=== PATIENT | female | born 1945 | race Caucasian/White ===

== ENCOUNTER 2020-12-05 23:55 | Inpatient (IN) | payer MEDICARE ==
[~2020-12-05] VITALS: Ht 157.5 cm; Wt 56.8 kg
[2020-12-06 00:25] LABS: BASO % 0 % (0-3); EOS % 0 % (0-3); HEMOGLOBIN 12.5 g/dL (12.0-15.5); LYMPH # 1.6 x10^3/uL (1.0-4.8); LYMPH % 15 % (24-48); MEAN CORPUSCULAR HEMOGLOBIN 33 pg (25-35); MEAN CORPUSCULAR HGB CONC 34 g/dL (31-37); MEAN CORPUSCULAR VOLUME 99 fL (79-100); MONO # 0.9 x10^3/uL (0.0-1.1); MONO % 8 % (0-9); NEUT # 8.1 x10^3/uL (1.8-7.7); NEUT % 77 % (31-73); PLATELET COUNT 342 x10^3/uL (140-400); RED BLOOD COUNT 3.74 x10^6/uL (3.50-5.40); RED CELL DISTRIBUTION WIDTH 12.6 % (11.5-14.5); WHITE BLOOD COUNT 10.6 x10^3/uL (4.0-11.0)
[2020-12-06] MEDS ORDERED: methylPREDNISolone SOD SUCC PF 125 MG/2 ML VIAL. IV ONE (00:30)
[2020-12-06] MEDS ORDERED: ONDANSETRON PF 4 MG/2 ML VIAL. IVP ONE (00:30)
[2020-12-06] MEDS ORDERED: IPRATRPIUM/ALBUTEROL 0.5/2.5MG 3 ML NEBU. NEB ONE (00:30)
[2020-12-06 00:39] LABS: CALCIUM 9.1 mg/dL (8.5-10.1); CREATININE 0.5 mg/dL (0.6-1.0); GFR 120.9
[2020-12-06 00:39] LABS: BASE EXCESS COOX -1 mmol/L (-3-3); HCO3 COOX 27 mmol/L (21-28); METHEMOGLOBIN 0.3 % (0.0-1.9); OXYHEMOGLOBIN 96.7 %; PCO2 COOX 59 mmHg (35-46); PO2 COOX 110 mmHg (65-108); SAT O2 COOX 97 % (92-99)
[2020-12-06 00:44] LABS: ALBUMIN/GLOBULIN RATIO 1.2 (1.0-1.7); TOTAL BILIRUBIN 0.2 mg/dL (0.2-1.0); TOTAL PROTEIN 7.4 g/dL (6.4-8.2)
--- NOTE | 2020-12-06 00:49 | RAD ---
XR CHEST 1V 12/06/2020 12:28 AM INDICATION: Shortness of air COMPARISON: None available TECHNIQUE: Portable frontal view of the chest is provided. FINDINGS: The cardiomediastinal silhouette is within normal limits. Pulmonary emphysematous changes are present . There are no significant pleural effusions. There is no pulmonary vascular congestion. No pneumothora x. No suspicious osseous abnormality. IMPRESSION: COPD changes without cardiopulmonary process. Electronically signed by: Harper Lira MD (12/06/2020 12:47 AM) [facility]
[2020-12-06 01:17] LABS: INFLUENZA A PATIENT NEGATIVE (NEGATIVE); INFLUENZA B PATIENT NEGATIVE (NEGATIVE)
--- NOTE | 2020-12-06 01:22 | PHYS DOC ---
Past Medical History Past Medical History: A-Fib, COPD Past Surgical History: Other Additional Past Surgical Histo: unknown Smoking Status: Current Every Day Smoker Alcohol Use: None General Adult EDM: Chief Complaint: SHORTNESS OF BREATH HPI: HPI: Patient is a 74 year old female who was brought here by EMS from home due to trouble breathing. Per EMS report patient has been sick for a week due to trouble breathing and cough, nonproductive. For the last 3-day she had more trouble breathing, she is currently on prednisone. Tonight her breathing became more labored so she called EMS to take her here for evaluation. Patient denies any fever. Patient was fully vaccinated for COVID-19. Patient says she does not want to be intubated. Patient has history of atrial fibrillation, COPD. Review of Systems: Review of Systems: Constitutional: Denies fever or chills. [] Eyes: Denies change in visual acuity. [] HENT: Denies nasal congestion or sore throat. [] Respiratory: Positive for cough and trouble breathing. Cardiovascular: Denies chest pain or edema. [] GI: Denies abdominal pain, nausea, vomiting, bloody stools or diarrhea. [] : Denies dysuria. [] Musculoskeletal: Denies back pain or joint pain. [] Integument: Denies rash. [] Neurologic: Denies headache, focal weakness or sensory changes. [] Endocrine: Denies polyuria or polydipsia. [] Lymphatic: Denies swollen glands. [] Psychiatric: Denies depression or anxiety. [] Heart Score: C/O Chest Pain: N/A Risk Factors: Risk Factors: DM, Current or recent (<one month) smoker, HTN, HLP, family history of CAD, obesity. Risk Scores: Score 0 - 3: 2.5% MACE over next 6 weeks - Discharge Home Score 4 - 6: 20.3% MACE over next 6 weeks - Admit for Clinical Observation Score 7 - 10: 72.7% MACE over next 6 weeks - Early Invasive Strategies Current Medications: Current Medications Medications (Trade) Dose Ordered Sig/Demetra Start Time Stop Time Status Last Admin Dose Admin Albuterol/ Ipratropium (Duoneb) 3 ml 1X ONCE 12/06/20 00:30 12/06/20 00:31 DC 12/06/20 00:27 3 ML Lorazepam (Ativan Inj) 1 mg 1X ONCE 12/06/20 01:00 12/06/20 01:01 DC 12/06/20 00:56 1 MG Methylprednisolone Sodium Succinate (SOLU-Medrol 125MG VIAL) 125 mg 1X ONCE 12/06/20 00:30 12/06/20 00:31 DC 12/06/20 00:56 125 MG Ondansetron HCl (Zofran) 4 mg 1X ONCE 12/06/20 00:30 12/06/20 00:46 DC 12/06/20 00:56 4 MG Allergies: Allergies: Allergies Coded Allergies Type Severity Reaction Last Updated Verified No Known Drug Allergies 12/06/20 No Physical Exam: PE: Constitutional: Well developed, well nourished, in moderate acute distress, non- toxic appearance. [] HENT: Normocephalic, atraumatic, bilateral external ears normal, oropharynx moist, no oral exudates, nose normal. [] Eyes: PERRLA, EOMI, conjunctiva normal, no discharge. [] Neck: Normal range of motion, no tenderness, supple, no stridor. [] Cardiovascular: TACHYCARDIA, IRREGULAR rhythm, no murmur [] Lungs & Thorax: Bilateral breath sounds WITH WHEEZING to auscultation, tac hypnic. Abdomen: Bowel sounds normal, soft, no tenderness, no masses, no pulsatile masses. [] Skin: Warm, dry, no erythema, no rash. [] Back: No tenderness, no CVA tenderness. [] Extremities: No tenderness, no cyanosis, no clubbing, ROM intact, no edema. [] Neurologic: Alert and oriented X 3, normal motor function, normal sensory function, no focal deficits noted. [] Psychologic: Affect normal, judgement normal, mood normal. [] Current Patient Data: Labs: Laboratory Tests Test 12/06/20 00:05 12/06/20 00:16 12/06/20 00:34 White Blood Count 10.6 x10^3/uL (4.0-11.0) Red Blood Count 3.74 x10^6/uL (3.50-5.40) Hemoglobin 12.5 g/dL (12.0-15.5) Hematocrit 37.0 % (36.0-47.0) Mean Corpuscular Volume 99 fL (79-100) Mean Corpuscular Hemoglobin 33 pg (25-35) Mean Corpuscular Hemoglobin Concent 34 g/dL (31-37) Red Cell Distribution Width 12.6 % (11.5-14.5) Platelet Count 342 x10^3/uL (140-400) Neutrophils (%) (Auto) 77 % (31-73) H Lymphocytes (%) (Auto) 15 % (24-48) L Monocytes (%) (Auto) 8 % (0-9) Eosinophils (%) (Auto) 0 % (0-3) Basophils (%) (Auto) 0 % (0-3) Neutrophils # (Auto) 8.1 x10^3/uL (1.8-7.7) H Lymphocytes # (Auto) 1.6 x10^3/uL (1.0-4.8) Monocytes # (Auto) 0.9 x10^3/uL (0.0-1.1) Eosinophils # (Auto) 0.0 x10^3/uL (0.0-0.7) Basophils # (Auto) 0.0 x10^3/uL (0.0-0.2) Sodium Level 139 mmol/L (136-145) Potassium Level 4.0 mmol/L (3.5-5.1) Chloride Level 100 mmol/L (98-107) Carbon Dioxide Level 32 mmol/L (21-32) Anion Gap 7 (6-14) Blood Urea Nitrogen 14 mg/dL (7-20) Creatinine 0.5 mg/dL (0.6-1.0) L Estimated GFR (Cockcroft-Gault) 120.9 BUN/Creatinine Ratio 28 (6-20) H Glucose Level 134 mg/dL (70-99) H Lactic Acid Level 0.6 mmol/L (0.4-2.0) Calcium Level 9.1 mg/dL (8.5-10.1) Magnesium Level 2.0 mg/dL (1.8-2.4) Total Bilirubin 0.2 mg/dL (0.2-1.0) Aspartate Amino Transferase (AST) 28 U/L (15-37) Alanine Aminotransferase (ALT) 30 U/L (14-59) Alkaline Phosphatase 77 U/L (46-116) Troponin I High Sensitivity 14 ng/L (4-50) YN-Cjb-B-Type Natriuretic Peptide 252 pg/mL (0-124) H Total Protein 7.4 g/dL (6.4-8.2) Albumin 4.0 g/dL (3.4-5.0) Albumin/Globulin Ratio 1.2 (1.0-1.7) O2 Saturation 97 % (92-99) Arterial Blood pH 7.27 (7.35-7.45) L Arterial Blood pCO2 at Patient Temp 59 mmHg (35-46) H Arterial Blood pO2 at Patient Temp 110 mmHg (65-108) H Arterial Blood HCO3 27 mmol/L (21-28) Arterial Blood Base Excess -1 mmol/L (-3-3) Oxyhemoglobin 96.7 % Methemoglobin 0.3 % (0.0-1.9) Carbon Monoxide, Quantitative 0.3 % (0.0-1.9) FiO2 7l n.c. Influenza Type A Antigen Negative (NEGATIVE) Influenza Type B Antigen Negative (NEGATIVE) SARS-CoV-2 Antigen (Rapid) Negative (NEGATIVE) Laboratory Tests 12/06/20 00:05 Laboratory Tests 12/06/20 00:05 Vital Signs: Vital Signs Date Time Temp Pulse Resp B/P (MAP) Pulse Ox O2 Delivery O2 Flow Rate FiO2 12/06/20 01:06 94 BiPAP/CPAP 12/06/20 01:02 7.0 12/06/20 00:26 126 30 126/90 (102) 12/06/20 00:00 97.9 97.9 EKG: EKG: EKG was done at 0010, heart rate of 121 BPM, AFIB WITH RVR, NO STEMI. Radiology/Procedures: Radiology/Procedures: [][facility] [address] [place] [address] IMAGING REPORT Signed PATIENT: CASANDRA SMITH ACCOUNT: [id number] : 1945 LOCATION: ER AGE: 74 SEX: F EXAM STATUS: PRE ER ORD. PHYSICIAN: SAYRA GUTIERREZ APRN REASON: SOA PROCEDURE: PORTABLE CHEST 1V XR CHEST 1V 12/06/2020 12:28 AM INDICATION: Shortness of air COMPARISON: None available TECHNIQUE: Portable frontal view of the chest is provided. FINDINGS: The cardiomediastinal silhouette is within normal limits. Pulmonary emphysematous changes are present. There are no significant pleural effusions. There is no pulmonary vascular congestion. No pneumothorax. No suspicious osseous abnormality. IMPRESSION: COPD changes without cardiopulmonary process. Electronically signed by: Kendra Frias MD (12/06/2020 12:47 AM) [facility] DICTATED and SIGNED BY: KENDRA FRIAS MD DATE: 12/06/20 [id number] Course & Med Decision Making: Course & Med Decision Making Pertinent Labs and Imaging studies reviewed. (See chart for details) Patient is a 73-year-old female who present to ER due to trouble breathing. Patient has COPD exacerbation, she also in atrial fibrillation with RVR. Patient expressed desire to be DO NOT RESUSCITATE. Patient was tested negative for COVID-19. Patient given DuoNeb treatment, Solu-Medrol in the ER. Patient be admitted to hospital for further evaluation treatment. Sofia Disclaimer: Sofia Disclaimer: This electronic medical record was generated, in whole or in part, using a voice recognition dictation system. Departure Departure Impression: Primary Impression: COPD with exacerbation Additional Impressions: Atrial fibrillation with RVR Person under investigation for COVID-19 Disposition: ADMITTED INPATIENT Admitting Physician: BRAD (DR. LAVERNE LEI) Condition: STABLE ALEX MONTES DO Dec 06, 2020 01:22
[2020-12-06] MEDS ORDERED: IV NORMAL SALINE 1000ML BAG 1,000 ML IV SCH (01:30)
[2020-12-06] MEDS ORDERED: ONDANSETRON PF 4 MG/2 ML VIAL. IVP PRN ×2 (01:30→08:45)
[2020-12-06 01:54] LABS: BASE EXCESS ABG 3 mmol/L (-3-3); HCO3 ABG 31 mmol/L (21-28); PCO2 ABG 66 mmHg (35-46); PO2 ABG 73 mmHg (65-108); SAT O2 ABG 93 % (92-99)
[2020-12-06 01:55] LABS: FIO2 ABG 30
[2020-12-06 02:12] LABS: BILIRUBIN,URINE NEGATIVE (NEG); CLARITY,URINE CLEAR; COLOR,URINE YELLOW; NITRITE,URINE NEGATIVE (NEG); PROTEIN,URINE NEGATIVE (NEG-TRACE); UROBILINOGEN,URINE 0.2 mg/dL (0.2 mg/dL)
[2020-12-06 02:34] LABS: BACTERIA,URINE 0 /HPF (0-FEW); RBC,URINE 0 /HPF (0-2); WBC,URINE OCC /HPF (0-4)
[2020-12-06 02:35] LABS: HYALINE CASTS, URINE MODERATE /HPF
--- NOTE | 2020-12-06 08:39 | PDOC1 ---
History and Physical Date of Service: DOS: DATE: 12/06/20 TIME: 08:32 Chief Complaint: Chief Complain: Shortness of breath History of Present Illness: HPI: History obtained from discussion with the ED physician and chart review: 74-year-old female with past medical history of atrial fibrillation, COPD comes in with shortness of breath for the past week aggressively worsened. Patient has also been complaining of cough that has minimal production that is clear sputum. No yellow or greenish sputum. Patient is currently on prednisone. Last night her breathing became so labored that she had to call EMS and come to the ED for further evaluation. Denies any chest pain, fevers, nausea vomiting, abdominal pain, diarrhea, hematuria or palpitations or syncope. Patient is vaccinated for COVID-19. Past Medical/Surgical History: PMH/PSH: Past Medical History: A-Fib, COPD Allergies: Allergies: Coded Allergies: No Known Drug Allergies (Unverified , 12/06/20) Family History: Family History: Reviewed with no relevant findings Social History: Social History: Smoking Status: Current Every Day Smoker Alcohol Use: None Current Medications: Current Medications Current Medications Methylprednisolone Sodium Succinate (SOLU-Medrol 125MG VIAL) 125 mg 1X ONCE IV Last administered on 12/06/20at 00:56; Start 12/06/20 at 00:30; Stop 12/06/20 at 00:31; Status DC Albuterol/ Ipratropium (Duoneb) 3 ml 1X ONCE NEB Last administered on 12/06/20at 00:27; Start 12/06/20 at 00:30; Stop 12/06/20 at 00:31; Status DC Ondansetron HCl (Zofran) 4 mg 1X ONCE IVP Last administered on 12/06/20at 00:56; Start 12/06/20 at 00:30; Stop 12/06/20 at 00:46; Status DC Lorazepam (Ativan Inj) 1 mg 1X ONCE IVP Last administered on 12/06/20at 00:56; Start 12/06/20 at 01:00; Stop 12/06/20 at 01:01; Status DC Ondansetron HCl (Zofran) 4 mg PRN Q8HRS PRN IVP NAUSEA/VOMITING; Start 12/06/20 at 01:30; Stop 12/07/20 at 01:29 Sodium Chloride 1,000 ml @ 75 mls/hr [id number] IV Last administered on 12/06/20at 02:43; Start 12/06/20 at 01:30; Stop 12/07/20 at 01:29 Diltiazem HCl (Cardizem Iv Push) 20 mg 1X ONCE IVP Last administered on 12/06/20at 02:41; Start 12/06/20 at 01:30; Stop 12/06/20 at 01:33; Status DC Diltiazem HCl 125 mg/Sodium Chloride 125 ml @ 5 mls/hr CONT PRN IV PER PROTOCOL; Start 12/06/20 at 02:30 ROS: Review of Systems Review of System REVIEW OF SYSTEMS: GENERAL: Denies weakness SKIN: No bruising, hair changes or rashes. EYES: No blurred, double or loss of vision. NOSE AND THROAT: No history of nosebleeds, hoarseness or sore throat. HEART: No history of palpitations, chest pain or shortness of breath on exertion. LUNGS: Denies cough, hemoptysis, wheezing or shortness of breath. GASTROINTESTINAL: Denies changes in appetite, nausea, vomiting, diarrhea or constipation. GENITOURINARY: No history of frequency, urgency, hesitancy or nocturia. NEUROLOGIC: Denies history of numbness, tingling, or tremor. PSYCHIATRIC: No history of panic, anxiety or depression. ENDOCRINE: No history of heat or cold intolerance, polyuria or polydipsia. EXTREMITIES: Denies joint pain, pain on walking or stiffness. Physical Exam: Vital Signs: Vital Signs Date Time Temp Pulse Resp B/P (MAP) Pulse Ox O2 Delivery O2 Flow Rate FiO2 12/06/20 06:08 106 26 124/61 (82) 96 BiPAP/CPAP 12/06/20 01:02 7.0 12/06/20 00:00 97.9 97.9 Physcial Exam: GEN: No apparent distress. Alert and oriented HEENT: Normal cephalic, atraumatic, external auditory canals are patent EYES: Extraocular muscles are intact, pupil are equally round and reactive to light and accommodation MUSCULOSKELETAL: Well developed , well nourished, good range of motion ENDOCRINE: No thyromegaly was palpated LYMPHATICS: No cervical chain or axillary nodes were noted HEMATOPOIETIC: No bruising NECK: Supple, no JVD, no thyromegaly was noted LUNGS: Clear to auscultation in all lung [place] without rhonchi or wheezing HEART: RRR, S!, S2 present. Peripheral pulses intact, no obvious murmurs noted ABDOMEN: Soft, nontender. Positive bowel sounds, no organomegaly, normal bowel sounds EXTREMITIES: Without clubbing, cyanosis, or edema. Pedal pulses intact. Negative Homans sign NEUROLOGIC: Normal speech and tone. A&O x 3, moves all extremities, no obvious focal deficits PSYCHIATRIC: Normal affect, normal mood. Stable SKIN: No ulcerations or rashes, good skin turgor, no jaundice VASCULAR: Good capillary refill, neurovascular bundle appears to be intact Labs: Labs: Laboratory Tests Test 12/06/20 00:05 12/06/20 00:16 12/06/20 00:34 12/06/20 01:51 White Blood Count 10.6 x10^3/uL (4.0-11.0) Red Blood Count 3.74 x10^6/uL (3.50-5.40) Hemoglobin 12.5 g/dL (12.0-15.5) Hematocrit 37.0 % (36.0-47.0) Mean Corpuscular Volume 99 fL (79-100) Mean Corpuscular Hemoglobin 33 pg (25-35) Mean Corpuscular Hemoglobin Concent 34 g/dL (31-37) Red Cell Distribution Width 12.6 % (11.5-14.5) Platelet Count 342 x10^3/uL (140-400) Neutrophils (%) (Auto) 77 % (31-73) Lymphocytes (%) (Auto) 15 % (24-48) Monocytes (%) (Auto) 8 % (0-9) Eosinophils (%) (Auto) 0 % (0-3) Basophils (%) (Auto) 0 % (0-3) Neutrophils # (Auto) 8.1 x10^3/uL (1.8-7.7) Lymphocytes # (Auto) 1.6 x10^3/uL (1.0-4.8) Monocytes # (Auto) 0.9 x10^3/uL (0.0-1.1) Eosinophils # (Auto) 0.0 x10^3/uL (0.0-0.7) Basophils # (Auto) 0.0 x10^3/uL (0.0-0.2) Sodium Level 139 mmol/L (136-145) Potassium Level 4.0 mmol/L (3.5-5.1) Chloride Level 100 mmol/L (98-107) Carbon Dioxide Level 32 mmol/L (21-32) Anion Gap 7 (6-14) Blood Urea Nitrogen 14 mg/dL (7-20) Creatinine 0.5 mg/dL (0.6-1.0) Estimated GFR (Cockcroft-Gault) 120.9 BUN/Creatinine Ratio 28 (6-20) Glucose Level 134 mg/dL (70-99) Lactic Acid Level 0.6 mmol/L (0.4-2.0) Calcium Level 9.1 mg/dL (8.5-10.1) Magnesium Level 2.0 mg/dL (1.8-2.4) Total Bilirubin 0.2 mg/dL (0.2-1.0) Aspartate Amino Transf (AST/SGOT) 28 U/L (15-37) Alanine Aminotransferase (ALT/SGPT) 30 U/L (14-59) Alkaline Phosphatase 77 U/L (46-116) Troponin I High Sensitivity 14 ng/L (4-50) FQ-Uxn-Y-Type Natriuretic Peptide 252 pg/mL (0-124) Total Protein 7.4 g/dL (6.4-8.2) Albumin 4.0 g/dL (3.4-5.0) Albumin/Globulin Ratio 1.2 (1.0-1.7) O2 Saturation 97 % (92-99) 93 % (92-99) Arterial Blood pH 7.27 (7.35-7.45) 7.29 (7.35-7.45) Arterial Blood pCO2 at Patient Temp 59 mmHg (35-46) 66 mmHg (35-46) Arterial Blood pO2 at Patient Temp 110 mmHg (65-108) 73 mmHg (65-108) Arterial Blood HCO3 27 mmol/L (21-28) 31 mmol/L (21-28) Arterial Blood Base Excess -1 mmol/L (-3-3) 3 mmol/L (-3-3) Oxyhemoglobin 96.7 % Methemoglobin 0.3 % (0.0-1.9) Carbon Monoxide, Quantitative 0.3 % (0.0-1.9) FiO2 7l n.c. 30 Influenza Type A Antigen Negative (NEGATIVE) Influenza Type B Antigen Negative (NEGATIVE) SARS-CoV-2 Antigen (Rapid) Negative (NEGATIVE) Test 12/06/20 02:00 Urine Collection Type Unknown Urine Color Yellow Urine Clarity Clear Urine pH 6.0 (<5.0-8.0) Urine Specific [place] 1.015 (1.000-1.030) Urine Protein Negative mg/dL (NEG-TRACE) Urine Glucose (UA) Negative mg/dL (NEG) Urine Ketones (Stick) Negative mg/dL (NEG) Urine Blood Negative (NEG) Urine Nitrite Negative (NEG) Urine Bilirubin Negative (NEG) Urine Urobilinogen Dipstick 0.2 mg/dL (0.2 mg/dL) Urine Leukocyte Esterase Negative (NEG) Urine RBC 0 /HPF (0-2) Urine WBC Occ /HPF (0-4) Urine Squamous Epithelial Cells Few /LPF Urine Bacteria 0 /HPF (0-FEW) Urine Hyaline Casts Moderate /HPF Urine Mucus Mod /LPF Laboratory Tests Test 12/06/20 00:05 12/06/20 00:16 12/06/20 00:34 12/06/20 01:51 White Blood Count 10.6 x10^3/uL (4.0-11.0) Red Blood Count 3.74 x10^6/uL (3.50-5.40) Hemoglobin 12.5 g/dL (12.0-15.5) Hematocrit 37.0 % (36.0-47.0) Mean Corpuscular Volume 99 fL (79-100) Mean Corpuscular Hemoglobin 33 pg (25-35) Mean Corpuscular Hemoglobin Concent 34 g/dL (31-37) Red Cell Distribution Width 12.6 % (11.5-14.5) Platelet Count 342 x10^3/uL (140-400) Neutrophils (%) (Auto) 77 % (31-73) Lymphocytes (%) (Auto) 15 % (24-48) Monocytes (%) (Auto) 8 % (0-9) Eosinophils (%) (Auto) 0 % (0-3) Basophils (%) (Auto) 0 % (0-3) Neutrophils # (Auto) 8.1 x10^3/uL (1.8-7.7) Lymphocytes # (Auto) 1.6 x10^3/uL (1.0-4.8) Monocytes # (Auto) 0.9 x10^3/uL (0.0-1.1) Eosinophils # (Auto) 0.0 x10^3/uL (0.0-0.7) Basophils # (Auto) 0.0 x10^3/uL (0.0-0.2) Sodium Level 139 mmol/L (136-145) Potassium Level 4.0 mmol/L (3.5-5.1) Chloride Level 100 mmol/L (98-107) Carbon Dioxide Level 32 mmol/L (21-32) Anion Gap 7 (6-14) Blood Urea Nitrogen 14 mg/dL (7-20) Creatinine 0.5 mg/dL (0.6-1.0) Estimated GFR (Cockcroft-Gault) 120.9 BUN/Creatinine Ratio 28 (6-20) Glucose Level 134 mg/dL (70-99) Lactic Acid Level 0.6 mmol/L (0.4-2.0) Calcium Level 9.1 mg/dL (8.5-10.1) Magnesium Level 2.0 mg/dL (1.8-2.4) Total Bilirubin 0.2 mg/dL (0.2-1.0) Aspartate Amino Transf (AST/SGOT) 28 U/L (15-37) Alanine Aminotransferase (ALT/SGPT) 30 U/L (14-59) Alkaline Phosphatase 77 U/L (46-116) Troponin I High Sensitivity 14 ng/L (4-50) NU-Khv-X-Type Natriuretic Peptide 252 pg/mL (0-124) Total Protein 7.4 g/dL (6.4-8.2) Albumin 4.0 g/dL (3.4-5.0) Albumin/Globulin Ratio 1.2 (1.0-1.7) O2 Saturation 97 % (92-99) 93 % (92-99) Arterial Blood pH 7.27 (7.35-7.45) 7.29 (7.35-7.45) Arterial Blood pCO2 at Patient Temp 59 mmHg (35-46) 66 mmHg (35-46) Arterial Blood pO2 at Patient Temp 110 mmHg (65-108) 73 mmHg (65-108) Arterial Blood HCO3 27 mmol/L (21-28) 31 mmol/L (21-28) Arterial Blood Base Excess -1 mmol/L (-3-3) 3 mmol/L (-3-3) Oxyhemoglobin 96.7 % Methemoglobin 0.3 % (0.0-1.9) Carbon Monoxide, Quantitative 0.3 % (0.0-1.9) FiO2 7l n.c. 30 Influenza Type A Antigen Negative (NEGATIVE) Influenza Type B Antigen Negative (NEGATIVE) SARS-CoV-2 Antigen (Rapid) Negative (NEGATIVE) Test 12/06/20 02:00 Urine Collection Type Unknown Urine Color Yellow Urine Clarity Clear Urine pH 6.0 (<5.0-8.0) Urine Specific [place] 1.015 (1.000-1.030) Urine Protein Negative mg/dL (NEG-TRACE) Urine Glucose (UA) Negative mg/dL (NEG) Urine Ketones (Stick) Negative mg/dL (NEG) Urine Blood Negative (NEG) Urine Nitrite Negative (NEG) Urine Bilirubin Negative (NEG) Urine Urobilinogen Dipstick 0.2 mg/dL (0.2 mg/dL) Urine Leukocyte Esterase Negative (NEG) Urine RBC 0 /HPF (0-2) Urine WBC Occ /HPF (0-4) Urine Squamous Epithelial Cells Few /LPF Urine Bacteria 0 /HPF (0-FEW) Urine Hyaline Casts Moderate /HPF Urine Mucus Mod /LPF Images: Images PROCEDURE: PORTABLE CHEST 1V XR CHEST 1V 12/06/2020 12:28 AM INDICATION: Shortness of air COMPARISON: None available TECHNIQUE: Portable frontal view of the chest is provided. FINDINGS: The cardiomediastinal silhouette is within normal limits. Pulmonary emphysematous changes are present. There are no significant pleural effusions. There is no pulmonary vascular congestion. No pneumothorax. No suspicious osseous abnormality. IMPRESSION: COPD changes without cardiopulmonary process. Assessment/Plan Assessment/Plan Acute hypoxic hypercapnic respiratory failure Acute COPD exacerbation Acute on chronic A. fib RVR History of COPD Tobacco misuse Admit to hospitalist service for further management O2 supplementation to maintain O2 saturation greater than 90% BiPAP as needed and nocturnal Continue IV diltiazem drip to maintain target heart rate of less than 100 bpm IV steroids Continue telemetry Lovenox for DVT prophylaxis Protonix during steroids use GI prophylaxis ADA diet CODE STATUS DNR Discussed with RN and SW Disposition inpatient management as above DPOA: In addition to my E/M visit, advance care planning done with A total time of 20 minutes was spent from 8:00 to 820 face to face in discussion regarding the patient's goals of care, CODE STATUS. Smoking cessation: Total time spent was 12 minutes in face to face counseling. Patient has agreed to consider nicotine patches/gum or to start on Varnicline when discharged A total of 45 minutes of critical care time was spent in reviewing chart, labs, and images. Discussed with RN and SW. Justifications for Admission Other Justification CLYDE CAMP MD Dec 06, 2020 08:39
[2020-12-06] MEDS ORDERED: PROCHLORPERAZINE 10 MG/2 ML VIAL. IV PRN (08:45)
[2020-12-06] MEDS ORDERED: MORPHINE SULFATE 2 MG/ML INJ. IVP PRN (08:45)
[2020-12-06] MEDS ORDERED: MORPHINE SULFATE 2 MG/ML INJ. IV PRN (08:45)
[2020-12-06] MEDS ORDERED: ACETAMINOPHEN 325 MG TABLET. PO PRN (08:45)
[2020-12-06] MEDS ORDERED: DEXTROSE 50% 25 GM / 50ML DISP.SYRIN. IV PRN (08:45)
[2020-12-06] MEDS ORDERED: SENNOSIDES 8.6 MG TABLET PO PRN (08:45)
[2020-12-06] MEDS ORDERED: DOCUSATE SODIUM 100 MG CAPSULE. PO PRN (08:45)
[2020-12-06] MEDS ORDERED: ENOXAPARIN 40 MG/0.4 ML SYRINGE. SQ SCH (09:00)
--- NOTE | 2020-12-06 09:14 | PDOC ---
PULMONARY PROGRESS NOTES DATE: 12/06/20 TIME: 09:14 Vitals Vital Signs Date Time Temp Pulse Resp B/P (MAP) Pulse Ox O2 Delivery O2 Flow Rate FiO2 12/06/20 08:33 96 BiPAP/CPAP 12/06/20 06:08 106 26 124/61 (82) 12/06/20 01:02 7.0 12/06/20 00:00 97.9 97.9 Labs Laboratory Tests Test 12/06/20 00:05 12/06/20 00:16 12/06/20 00:34 12/06/20 01:51 White Blood Count 10.6 x10^3/uL (4.0-11.0) Red Blood Count 3.74 x10^6/uL (3.50-5.40) Hemoglobin 12.5 g/dL (12.0-15.5) Hematocrit 37.0 % (36.0-47.0) Mean Corpuscular Volume 99 fL (79-100) Mean Corpuscular Hemoglobin 33 pg (25-35) Mean Corpuscular Hemoglobin Concent 34 g/dL (31-37) Red Cell Distribution Width 12.6 % (11.5-14.5) Platelet Count 342 x10^3/uL (140-400) Neutrophils (%) (Auto) 77 % (31-73) Lymphocytes (%) (Auto) 15 % (24-48) Monocytes (%) (Auto) 8 % (0-9) Eosinophils (%) (Auto) 0 % (0-3) Basophils (%) (Auto) 0 % (0-3) Neutrophils # (Auto) 8.1 x10^3/uL (1.8-7.7) Lymphocytes # (Auto) 1.6 x10^3/uL (1.0-4.8) Monocytes # (Auto) 0.9 x10^3/uL (0.0-1.1) Eosinophils # (Auto) 0.0 x10^3/uL (0.0-0.7) Basophils # (Auto) 0.0 x10^3/uL (0.0-0.2) Sodium Level 139 mmol/L (136-145) Potassium Level 4.0 mmol/L (3.5-5.1) Chloride Level 100 mmol/L (98-107) Carbon Dioxide Level 32 mmol/L (21-32) Anion Gap 7 (6-14) Blood Urea Nitrogen 14 mg/dL (7-20) Creatinine 0.5 mg/dL (0.6-1.0) Estimated GFR (Cockcroft-Gault) 120.9 BUN/Creatinine Ratio 28 (6-20) Glucose Level 134 mg/dL (70-99) Lactic Acid Level 0.6 mmol/L (0.4-2.0) Calcium Level 9.1 mg/dL (8.5-10.1) Magnesium Level 2.0 mg/dL (1.8-2.4) Total Bilirubin 0.2 mg/dL (0.2-1.0) Aspartate Amino Transf (AST/SGOT) 28 U/L (15-37) Alanine Aminotransferase (ALT/SGPT) 30 U/L (14-59) Alkaline Phosphatase 77 U/L (46-116) Troponin I High Sensitivity 14 ng/L (4-50) CC-Qdn-H-Type Natriuretic Peptide 252 pg/mL (0-124) Total Protein 7.4 g/dL (6.4-8.2) Albumin 4.0 g/dL (3.4-5.0) Albumin/Globulin Ratio 1.2 (1.0-1.7) O2 Saturation 97 % (92-99) 93 % (92-99) Arterial Blood pH 7.27 (7.35-7.45) 7.29 (7.35-7.45) Arterial Blood pCO2 at Patient Temp 59 mmHg (35-46) 66 mmHg (35-46) Arterial Blood pO2 at Patient Temp 110 mmHg (65-108) 73 mmHg (65-108) Arterial Blood HCO3 27 mmol/L (21-28) 31 mmol/L (21-28) Arterial Blood Base Excess -1 mmol/L (-3-3) 3 mmol/L (-3-3) Oxyhemoglobin 96.7 % Methemoglobin 0.3 % (0.0-1.9) Carbon Monoxide, Quantitative 0.3 % (0.0-1.9) FiO2 7l n.c. 30 Influenza Type A Antigen Negative (NEGATIVE) Influenza Type B Antigen Negative (NEGATIVE) SARS-CoV-2 Antigen (Rapid) Negative (NEGATIVE) Test 12/06/20 02:00 Urine Collection Type Unknown Urine Color Yellow Urine Clarity Clear Urine pH 6.0 (<5.0-8.0) Urine Specific [place] 1.015 (1.000-1.030) Urine Protein Negative mg/dL (NEG-TRACE) Urine Glucose (UA) Negative mg/dL (NEG) Urine Ketones (Stick) Negative mg/dL (NEG) Urine Blood Negative (NEG) Urine Nitrite Negative (NEG) Urine Bilirubin Negative (NEG) Urine Urobilinogen Dipstick 0.2 mg/dL (0.2 mg/dL) Urine Leukocyte Esterase Negative (NEG) Urine RBC 0 /HPF (0-2) Urine WBC Occ /HPF (0-4) Urine Squamous Epithelial Cells Few /LPF Urine Bacteria 0 /HPF (0-FEW) Urine Hyaline Casts Moderate /HPF Urine Mucus Mod /LPF Laboratory Tests Test 12/06/20 00:05 12/06/20 00:16 12/06/20 00:34 12/06/20 01:51 White Blood Count 10.6 x10^3/uL (4.0-11.0) Red Blood Count 3.74 x10^6/uL (3.50-5.40) Hemoglobin 12.5 g/dL (12.0-15.5) Hematocrit 37.0 % (36.0-47.0) Mean Corpuscular Volume 99 fL (79-100) Mean Corpuscular Hemoglobin 33 pg (25-35) Mean Corpuscular Hemoglobin Concent 34 g/dL (31-37) Red Cell Distribution Width 12.6 % (11.5-14.5) Platelet Count 342 x10^3/uL (140-400) Neutrophils (%) (Auto) 77 % (31-73) Lymphocytes (%) (Auto) 15 % (24-48) Monocytes (%) (Auto) 8 % (0-9) Eosinophils (%) (Auto) 0 % (0-3) Basophils (%) (Auto) 0 % (0-3) Neutrophils # (Auto) 8.1 x10^3/uL (1.8-7.7) Lymphocytes # (Auto) 1.6 x10^3/uL (1.0-4.8) Monocytes # (Auto) 0.9 x10^3/uL (0.0-1.1) Eosinophils # (Auto) 0.0 x10^3/uL (0.0-0.7) Basophils # (Auto) 0.0 x10^3/uL (0.0-0.2) Sodium Level 139 mmol/L (136-145) Potassium Level 4.0 mmol/L (3.5-5.1) Chloride Level 100 mmol/L (98-107) Carbon Dioxide Level 32 mmol/L (21-32) Anion Gap 7 (6-14) Blood Urea Nitrogen 14 mg/dL (7-20) Creatinine 0.5 mg/dL (0.6-1.0) Estimated GFR (Cockcroft-Gault) 120.9 BUN/Creatinine Ratio 28 (6-20) Glucose Level 134 mg/dL (70-99) Lactic Acid Level 0.6 mmol/L (0.4-2.0) Calcium Level 9.1 mg/dL (8.5-10.1) Magnesium Level 2.0 mg/dL (1.8-2.4) Total Bilirubin 0.2 mg/dL (0.2-1.0) Aspartate Amino Transf (AST/SGOT) 28 U/L (15-37) Alanine Aminotransferase (ALT/SGPT) 30 U/L (14-59) Alkaline Phosphatase 77 U/L (46-116) Troponin I High Sensitivity 14 ng/L (4-50) RG-Gel-V-Type Natriuretic Peptide 252 pg/mL (0-124) Total Protein 7.4 g/dL (6.4-8.2) Albumin 4.0 g/dL (3.4-5.0) Albumin/Globulin Ratio 1.2 (1.0-1.7) O2 Saturation 97 % (92-99) 93 % (92-99) Arterial Blood pH 7.27 (7.35-7.45) 7.29 (7.35-7.45) Arterial Blood pCO2 at Patient Temp 59 mmHg (35-46) 66 mmHg (35-46) Arterial Blood pO2 at Patient Temp 110 mmHg (65-108) 73 mmHg (65-108) Arterial Blood HCO3 27 mmol/L (21-28) 31 mmol/L (21-28) Arterial Blood Base Excess -1 mmol/L (-3-3) 3 mmol/L (-3-3) Oxyhemoglobin 96.7 % Methemoglobin 0.3 % (0.0-1.9) Carbon Monoxide, Quantitative 0.3 % (0.0-1.9) FiO2 7l n.c. 30 Influenza Type A Antigen Negative (NEGATIVE) Influenza Type B Antigen Negative (NEGATIVE) SARS-CoV-2 Antigen (Rapid) Negative (NEGATIVE) Test 12/06/20 02:00 Urine Collection Type Unknown Urine Color Yellow Urine Clarity Clear Urine pH 6.0 (<5.0-8.0) Urine Specific [place] 1.015 (1.000-1.030) Urine Protein Negative mg/dL (NEG-TRACE) Urine Glucose (UA) Negative mg/dL (NEG) Urine Ketones (Stick) Negative mg/dL (NEG) Urine Blood Negative (NEG) Urine Nitrite Negative (NEG) Urine Bilirubin Negative (NEG) Urine Urobilinogen Dipstick 0.2 mg/dL (0.2 mg/dL) Urine Leukocyte Esterase Negative (NEG) Urine RBC 0 /HPF (0-2) Urine WBC Occ /HPF (0-4) Urine Squamous Epithelial Cells Few /LPF Urine Bacteria 0 /HPF (0-FEW) Urine Hyaline Casts Moderate /HPF Urine Mucus Mod /LPF Impression . Note dictated See dictation Acute on chronic hypercapnic hypoxemic respiratory failure LYUBOV WARREN MD Dec 06, 2020 09:14
[2020-12-06] MEDS: LORazepam 0.5 MG TABLET PO PRN (09:18)
[2020-12-06] MEDS ORDERED: IPRATRPIUM/ALBUTEROL 0.5/2.5MG 3 ML NEBU. ONE (09:35)
[2020-12-06] MEDS: IPRATRPIUM/ALBUTEROL 0.5/2.5MG 3 ML NEBU. NEB SCH ×3 (09:40→20:29)
[2020-12-06] MEDS: methylPREDNISolone SOD SUCC PF 40 MG/ML VIAL. IV SCH ×3 (12:34→22:02)
--- NOTE | 2020-12-06 14:28 | PDOC2 ---
[address] MONKEY 12/06/20 1428: CARDIAC CONSULT DATE OF CONSULT Date of Consult DATE: 12/06/20 TIME: 14:23 REASON FOR CONSULT Reason for Consult: AFIB with RVR REFERRING PHYSICIAN Referring Physician: Dr. Robbins SOURCE Source: Chart review, Patient HISTORY OF PRESENT ILLNESS HISTORY OF PRESENT ILLNESS This is a 74 yo female who presented secondary to shortness of breath. Patient has a history of COPD and continued tobaccoism. Has been more short of breath for the last week or so. Has been worse over the last couple of days so she came into the ED for further evaluation and treatment. Was noted to be tachycardic, which prompted this consult. Patient does reports a history of an irregular heart rhythm many years ago, but does not think it was AFIB. Does not follow with director systems. She denies any chest pain, dizziness, or palpitations. Does report shortness of breath and wheezing. No LE edema. PAST MEDICAL HISTORY Cardiovascular: AFIB, HTN Pulmonary: COPD Musculoskeletal: Osteoarthritis PAST SURGICAL HISTORY Past Surgical History: Hysterectomy, Other (thyroidectomy ) FAMILY HISTORY Family History: Hypertension SOCIAL HISTORY Smoke: <1 pack per day ALCOHOL: none Drugs: None Lives: with Family CURRENT MEDICATIONS CURRENT MEDICATIONS Current Medications Medications (Trade) Dose Ordered Sig/Demetra Route PRN Reason Start Time Stop Time Status Last Admin Dose Admin Methylprednisolone Sodium Succinate (SOLU-Medrol 125MG VIAL) 125 mg 1X ONCE IV 12/06/20 00:30 12/06/20 00:31 DC 12/06/20 00:56 Albuterol/ Ipratropium (Duoneb) 3 ml 1X ONCE NEB 12/06/20 00:30 12/06/20 00:31 DC 12/06/20 00:27 Ondansetron HCl (Zofran) 4 mg 1X ONCE IVP 12/06/20 00:30 12/06/20 00:46 DC 12/06/20 00:56 Lorazepam (Ativan Inj) 1 mg 1X ONCE IVP 12/06/20 01:00 12/06/20 01:01 DC 12/06/20 00:56 Sodium Chloride 1,000 ml @ 75 mls/hr [id number] IV 12/06/20 01:30 12/07/20 01:29 12/06/20 02:43 Diltiazem HCl (Cardizem Iv Push) 20 mg 1X ONCE IVP 12/06/20 01:30 12/06/20 01:33 DC 12/06/20 02:41 Methylprednisolone Sodium Succinate (SOLU-Medrol 40MG VIAL) 40 mg Q6HRS IV 12/06/20 12:00 12/06/20 12:34 Albuterol/ Ipratropium (Duoneb) 3 ml RTQID NEB 12/06/20 12:00 12/06/20 09:40 Lorazepam (Ativan) 0.5 mg PRN Q6HRS PRN PO ANXIETY / AGITATION 12/06/20 08:45 12/06/20 09:18 Enoxaparin Sodium (Lovenox 40mg Syringe) 40 mg Q24H SQ 12/06/20 09:00 12/06/20 09:14 ALLERGIES ALLERGIES: Coded Allergies: No Known Drug Allergies (Unverified , 12/06/20) ROS Review of System 14 point ROS conducted with pertinent positives noted above in HPI PHYSICAL EXAM General: Alert, Oriented X3, Cooperative, mild distress HEENT: Atraumatic Lungs: Other (expiratory wheezes) Heart: Regular rate Abdomen: Soft, No tenderness Extremities: No edema, Normal pulses Skin: No significant lesion Neuro: Normal speech, Sensation intact Psych/Mental Status: Mental status NL, Mood NL MUSCULOSKELETAL: Osteoarthritic changes both hands VITALS/I&O VITALS/I&O: Vital Signs Date Time Temp Pulse Resp B/P (MAP) Pulse Ox O2 Delivery O2 Flow Rate FiO2 12/06/20 10:01 112 26 167/66 (99) 94 BiPAP/CPAP 12/06/20 01:02 7.0 12/06/20 00:00 97.9 97.9 LABS Lab: Laboratory Tests Test 12/06/20 00:05 12/06/20 00:16 12/06/20 00:34 12/06/20 01:51 White Blood Count 10.6 x10^3/uL (4.0-11.0) Red Blood Count 3.74 x10^6/uL (3.50-5.40) Hemoglobin 12.5 g/dL (12.0-15.5) Hematocrit 37.0 % (36.0-47.0) Mean Corpuscular Volume 99 fL (79-100) Mean Corpuscular Hemoglobin 33 pg (25-35) Mean Corpuscular Hemoglobin Concent 34 g/dL (31-37) Red Cell Distribution Width 12.6 % (11.5-14.5) Platelet Count 342 x10^3/uL (140-400) Neutrophils (%) (Auto) 77 % (31-73) H Lymphocytes (%) (Auto) 15 % (24-48) L Monocytes (%) (Auto) 8 % (0-9) Eosinophils (%) (Auto) 0 % (0-3) Basophils (%) (Auto) 0 % (0-3) Neutrophils # (Auto) 8.1 x10^3/uL (1.8-7.7) H Lymphocytes # (Auto) 1.6 x10^3/uL (1.0-4.8) Monocytes # (Auto) 0.9 x10^3/uL (0.0-1.1) Eosinophils # (Auto) 0.0 x10^3/uL (0.0-0.7) Basophils # (Auto) 0.0 x10^3/uL (0.0-0.2) Sodium Level 139 mmol/L (136-145) Potassium Level 4.0 mmol/L (3.5-5.1) Chloride Level 100 mmol/L (98-107) Carbon Dioxide Level 32 mmol/L (21-32) Anion Gap 7 (6-14) Blood Urea Nitrogen 14 mg/dL (7-20) Creatinine 0.5 mg/dL (0.6-1.0) L Estimated GFR (Cockcroft-Gault) 120.9 BUN/Creatinine Ratio 28 (6-20) H Glucose Level 134 mg/dL (70-99) H Lactic Acid Level 0.6 mmol/L (0.4-2.0) Calcium Level 9.1 mg/dL (8.5-10.1) Magnesium Level 2.0 mg/dL (1.8-2.4) Total Bilirubin 0.2 mg/dL (0.2-1.0) Aspartate Amino Transferase (AST) 28 U/L (15-37) Alanine Aminotransferase (ALT) 30 U/L (14-59) Alkaline Phosphatase 77 U/L (46-116) Troponin I High Sensitivity 14 ng/L (4-50) WS-Aoe-S-Type Natriuretic Peptide 252 pg/mL (0-124) H Total Protein 7.4 g/dL (6.4-8.2) Albumin 4.0 g/dL (3.4-5.0) Albumin/Globulin Ratio 1.2 (1.0-1.7) O2 Saturation 97 % (92-99) 93 % (92-99) Arterial Blood pH 7.27 (7.35-7.45) L 7.29 (7.35-7.45) L Arterial Blood pCO2 at Patient Temp 59 mmHg (35-46) H 66 mmHg (35-46) *H Arterial Blood pO2 at Patient Temp 110 mmHg (65-108) H 73 mmHg (65-108) Arterial Blood HCO3 27 mmol/L (21-28) 31 mmol/L (21-28) H Arterial Blood Base Excess -1 mmol/L (-3-3) 3 mmol/L (-3-3) Oxyhemoglobin 96.7 % Methemoglobin 0.3 % (0.0-1.9) Carbon Monoxide, Quantitative 0.3 % (0.0-1.9) FiO2 7l n.c. 30 Influenza Type A Antigen Negative (NEGATIVE) Influenza Type B Antigen Negative (NEGATIVE) SARS-CoV-2 RNA (JUAN) Negative (Negative) SARS-CoV-2 Antigen (Rapid) Negative (NEGATIVE) Test 12/06/20 02:00 Urine Collection Type Unknown Urine Color Yellow Urine Clarity Clear Urine pH 6.0 (<5.0-8.0) Urine Specific [place] 1.015 (1.000-1.030) Urine Protein Negative mg/dL (NEG-TRACE) Urine Glucose (UA) Negative mg/dL (NEG) Urine Ketones (Stick) Negative mg/dL (NEG) Urine Blood Negative (NEG) Urine Nitrite Negative (NEG) Urine Bilirubin Negative (NEG) Urine Urobilinogen Dipstick 0.2 mg/dL (0.2 mg/dL) Urine Leukocyte Esterase Negative (NEG) Urine RBC 0 /HPF (0-2) Urine WBC Occ /HPF (0-4) Urine Squamous Epithelial Cells Few /LPF Urine Bacteria 0 /HPF (0-FEW) Urine Hyaline Casts Moderate /HPF Urine Mucus Mod /LPF Laboratory Tests 12/06/20 00:05 Laboratory Tests 12/06/20 00:05 ASSESSMENT/PLAN ASSESSMENT/PLAN 1. Acute on chronic respiratory failure with AE COPD and continued tobaccoism 2. PAFIB with RVR upon arrival; converted back to SR 3. Hypertension; labile 4. PUI; rapid negative Recommendations Start Cardizem for rate control No BB with wheezing Add ASA Continue VTE prophylaxis Lovenox. Consider Eliquis for stroke prophylaxis Obtain cardiac records from [facility] Echo to assess LV systolic function Ongoing pulmonary optimization Discussed/encouraged smoking cessation RICHARD MORGAN MD 12/06/20 7607: CARDIAC CONSULT ASSESSMENT/PLAN ASSESSMENT/PLAN Patient seen and examined. Agree with CLASS C DRIVER's assessment and plan. Patient presented with acute respiratory failure secondary to acute COPD exacerbation and was found to be in AF with RVR. She is presently back in sinus rhythm. Agree with 2D echo to assess LV systolic function. Start Eliquis for stroke prophylaxis. We will consider event monitor recording as an outpatient. Thank you for your consultation. JANEE HULL APRN Dec 06, 2020 14:28 RICHARD MORGAN MD Dec 06, 2020 16:57
[2020-12-06] MEDS: ASPIRIN ENTERIC COATED 81 MG TABLET.DR. PO SCH (16:00)
[2020-12-06 16:55] VITALS: BP 169/84
[2020-12-06 19:27] VITALS: BP 135/66
[2020-12-06] MEDS: APIXABAN 5 MG TABLET. PO SCH (22:02)
[2020-12-06 22:58] VITALS: BP 148/70
[2020-12-07 03:21] VITALS: BP 155/75
[2020-12-07 04:52] LABS: BASO % 0 % (0-3); EOS % 0 % (0-3); HEMOGLOBIN 11.9 g/dL (12.0-15.5); LYMPH # 0.7 x10^3/uL (1.0-4.8); LYMPH % 11 % (24-48); MEAN CORPUSCULAR HEMOGLOBIN 34 pg (25-35); MEAN CORPUSCULAR HGB CONC 34 g/dL (31-37); MEAN CORPUSCULAR VOLUME 100 fL (79-100); MONO # 0.4 x10^3/uL (0.0-1.1); MONO % 7 % (0-9); NEUT # 5.2 x10^3/uL (1.8-7.7); NEUT % 82 % (31-73); PLATELET COUNT 313 x10^3/uL (140-400); RED CELL DISTRIBUTION WIDTH 12.4 % (11.5-14.5); WHITE BLOOD COUNT 6.4 x10^3/uL (4.0-11.0)
[2020-12-07] MEDS ORDERED: ALBUTEROL SULFATE 2.5 MG/3 ML NEBU. NEB ONE (05:00)
[2020-12-07] MEDS: LORazepam 0.5 MG TABLET PO PRN (05:08)
[2020-12-07] MEDS: methylPREDNISolone SOD SUCC PF 40 MG/ML VIAL. IV SCH ×3 (05:11→17:05)
[2020-12-07 05:12] LABS: CALCIUM 8.8 mg/dL (8.5-10.1); CREATININE 0.4 mg/dL (0.6-1.0); GFR 156.5; MAGNESIUM 2.3 mg/dL (1.8-2.4); PHOSPHORUS 3.5 mg/dL (2.6-4.7); POTASSIUM 4.2 mmol/L (3.5-5.1)
--- NOTE | 2020-12-07 05:56 | EKG ---
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
[2020-12-07 07:00] VITALS: BP 135/82
[2020-12-07] MEDS: IPRATRPIUM/ALBUTEROL 0.5/2.5MG 3 ML NEBU. NEB SCH ×4 (08:48→21:20)
[2020-12-07] MEDS: PANTOPRAZOLE 40 MG TABLET.DR. PO SCH (10:08)
[2020-12-07] MEDS: ASPIRIN ENTERIC COATED 81 MG TABLET.DR. PO SCH (10:09)
[2020-12-07] MEDS: APIXABAN 5 MG TABLET. PO SCH ×2 (10:11→20:03)
[2020-12-07 10:31] VITALS: BP 173/79
--- NOTE | 2020-12-07 12:16 | NUR ---
SS following for discharge planning. SS reviewed pt chart and discussed with pt RN. Pt is from home with spouse and is currently on BIPAP at 30%. COVID19 negative. Cardiology and Pulmonology consulted. Pt on IV Solu-Medrol. SS will continue to follow for discharge planning.
--- NOTE | 2020-12-07 12:27 | PDOC ---
JANEE HULL LOANS OFFICER 12/07/20 1227: CARDIO Progress Notes Date and Time Date of Service 12/07/20 Time of Evaluation 1220 Subjective Subjective: No Chest Pain, No Palpitations, No Dizziness, Other (not more SOA) Vitals Vitals Vital Signs Date Time Temp Pulse Resp B/P (MAP) Pulse Ox O2 Delivery O2 Flow Rate FiO2 12/07/20 10:31 97.7 93 21 173/79 (110) 97 BiPAP/CPAP 97.7 12/07/20 08:50 3.0 Weight Weight [ ] Input and Output Intake and Output Intake and Output 12/07/20 07:00 Intake Total 200 ml Output Total 100 ml Balance 100 ml Intake Oral 200 ml Output Urine Total 100 ml Laboratory Labs Laboratory Tests Test 12/07/20 04:25 White Blood Count 6.4 x10^3/uL (4.0-11.0) Red Blood Count 3.50 x10^6/uL (3.50-5.40) Hemoglobin 11.9 g/dL (12.0-15.5) Hematocrit 35.0 % (36.0-47.0) Mean Corpuscular Volume 100 fL (79-100) Mean Corpuscular Hemoglobin 34 pg (25-35) Mean Corpuscular Hemoglobin Concent 34 g/dL (31-37) Red Cell Distribution Width 12.4 % (11.5-14.5) Platelet Count 313 x10^3/uL (140-400) Neutrophils (%) (Auto) 82 % (31-73) Lymphocytes (%) (Auto) 11 % (24-48) Monocytes (%) (Auto) 7 % (0-9) Eosinophils (%) (Auto) 0 % (0-3) Basophils (%) (Auto) 0 % (0-3) Neutrophils # (Auto) 5.2 x10^3/uL (1.8-7.7) Lymphocytes # (Auto) 0.7 x10^3/uL (1.0-4.8) Monocytes # (Auto) 0.4 x10^3/uL (0.0-1.1) Eosinophils # (Auto) 0.0 x10^3/uL (0.0-0.7) Basophils # (Auto) 0.0 x10^3/uL (0.0-0.2) Sodium Level 138 mmol/L (136-145) Potassium Level 4.2 mmol/L (3.5-5.1) Chloride Level 102 mmol/L (98-107) Carbon Dioxide Level 32 mmol/L (21-32) Anion Gap 4 (6-14) Blood Urea Nitrogen 17 mg/dL (7-20) Creatinine 0.4 mg/dL (0.6-1.0) Estimated GFR (Cockcroft-Gault) 156.5 Glucose Level 138 mg/dL (70-99) Calcium Level 8.8 mg/dL (8.5-10.1) Phosphorus Level 3.5 mg/dL (2.6-4.7) Magnesium Level 2.3 mg/dL (1.8-2.4) Microbiology Micro Microbiology 12/06/20 Blood Culture - Preliminary, Resulted NO GROWTH AFTER 1 DAY Physical Exam HEENT: Neck Supple W Full Motion Chest: Symmetric LUNGS: Other (on BiPAP, diminished ) Heart: RRR Abdomen: Soft N/T Extremities: No Edema Neurology: alert, oriented, follow commands Assessment Assessment 1. Acute on chronic respiratory failure with AE COPD and continued tobaccoism 2. PAFIB with RVR upon arrival; converted back to SR 3. Hypertension; labile 4. PUI; rapid negative Recommendations Continue Cardizem for rate control No BB with wheezing Eliquis for stroke prophylaxis Echo to assess LV systolic function Ongoing pulmonary optimization Discussed/encouraged smoking cessation Outpatient event monitor; patient would like this conducted through [facility] Justicifation of Admission Dx: Justifications for Admission: Justification of Admission Dx: Yes Comments: Acute on chronic respiratory failure with AE COPD PAFIB with RVR RICHARD MORGAN MD 12/07/20 1337: CARDIO Progress Notes Assessment Assessment Patient seen and examined. Agree with EDGE INKER UPPERS's assessment and plan. Patient presented with acute respiratory failure secondary to acute COPD exacerbation and was found to be in AF with RVR. She converted to sinus rhythm in ED. Telemetry did not show any further episodes. Check 2D echo to assess LV systolic function. Continue Eliquis for stroke prophylaxis. We will consider event monitor recording as an outpatient. JANEE HULL APRN Dec 07, 2020 12:27 RICHARD MORGAN MD Dec 07, 2020 13:37
[2020-12-07] MEDS ORDERED: ESCITALOPRAM OX10 MG PO (13:02)
[2020-12-07] MEDS ORDERED: FLUT1BLS3 IH (13:02)
[2020-12-07] MEDS ORDERED: LOSA100T14 PO (13:02)
[2020-12-07] MEDS ORDERED: AMLO-187 PO (13:02)
--- NOTE | 2020-12-07 14:41 | PDOC ---
[facility] PROGRESS NOTE Date of Service DOS: DATE: 12/07/20 TIME: 14:37 Chief Complaint Chief Complaint Acute hypoxic hypercapnic respiratory failure Acute COPD exacerbation Acute on chronic A. fib RVR History of COPD Tobacco misuse O2 supplementation to maintain O2 saturation greater than 90% BiPAP every 4 hours and as needed and nocturnal We will transition to 100 mg diltiazem p.o. daily to maintain target heart rate of less than 100 bpm IV steroids Continue telemetry Lovenox for DVT prophylaxis Protonix during steroids use GI prophylaxis ADA diet CODE STATUS DNR Discussed with RN and SW Disposition inpatient management as above DPOA: A total of 32 minutes of critical care time was spent in reviewing chart, labs, and images. Discussed with RN and SW. History of Present Illness History of Present Illness 74-year-old female with past medical history of atrial fibrillation, COPD comes in with shortness of breath for the past week aggressively worsened. Patient has also been complaining of cough that has minimal production that is clear sputum. No yellow or greenish sputum. Patient is currently on prednisone. Last night her breathing became so labored that she had to call EMS and come to the ED for further evaluation. Denies any chest pain, fevers, nausea vomiting, abdominal pain, diarrhea, hematuria or palpitations or syncope. Patient is vaccinated for COVID-19. 12/07/2020 No acute events overnight. Patient still requiring BiPAP RN. Tolerating BiPAP and breathing comfortably on machine. Continues to have some short sentences and using accessory muscles. We will continue with current IV steroid management and rate control with Cardizem. Patient's chart, labs, images were reviewed and discussed with RN In addition to my E/M visit, advance care planning done with A total time of 20 minutes was spent from 11:00 to 1120 face to face in discussion regarding the patient's goals of care, CODE STATUS. Patient wishes to still remain DNR as she does not want any ventilatory support and does not want to have that kind of quality of life. I agree with her decision and and respecting her wishes. Vitals/I&O Vitals/I&O: Vital Signs Date Time Temp Pulse Resp B/P (MAP) Pulse Ox O2 Delivery O2 Flow Rate FiO2 12/07/20 13:25 98 BiPAP/CPAP 12/07/20 10:31 97.7 93 21 173/79 (110) 97.7 12/07/20 08:50 3.0 I & O 12/06/20 12/06/20 12/07/20 15:00 23:00 07:00 Intake Total 200 ml 0 ml Output Total 100 ml Balance 100 ml 0 ml Physical Exam General: Alert, Oriented X3, Cooperative, mild distress Heart: Regular rate Abdomen: Soft, No tenderness Extremities: No edema, Normal pulses Skin: No significant lesion Labs Labs: Laboratory Tests Test 12/07/20 04:25 White Blood Count 6.4 x10^3/uL (4.0-11.0) Red Blood Count 3.50 x10^6/uL (3.50-5.40) Hemoglobin 11.9 g/dL (12.0-15.5) Hematocrit 35.0 % (36.0-47.0) Mean Corpuscular Volume 100 fL (79-100) Mean Corpuscular Hemoglobin 34 pg (25-35) Mean Corpuscular Hemoglobin Concent 34 g/dL (31-37) Red Cell Distribution Width 12.4 % (11.5-14.5) Platelet Count 313 x10^3/uL (140-400) Neutrophils (%) (Auto) 82 % (31-73) Lymphocytes (%) (Auto) 11 % (24-48) Monocytes (%) (Auto) 7 % (0-9) Eosinophils (%) (Auto) 0 % (0-3) Basophils (%) (Auto) 0 % (0-3) Neutrophils # (Auto) 5.2 x10^3/uL (1.8-7.7) Lymphocytes # (Auto) 0.7 x10^3/uL (1.0-4.8) Monocytes # (Auto) 0.4 x10^3/uL (0.0-1.1) Eosinophils # (Auto) 0.0 x10^3/uL (0.0-0.7) Basophils # (Auto) 0.0 x10^3/uL (0.0-0.2) Sodium Level 138 mmol/L (136-145) Potassium Level 4.2 mmol/L (3.5-5.1) Chloride Level 102 mmol/L (98-107) Carbon Dioxide Level 32 mmol/L (21-32) Anion Gap 4 (6-14) Blood Urea Nitrogen 17 mg/dL (7-20) Creatinine 0.4 mg/dL (0.6-1.0) Estimated GFR (Cockcroft-Gault) 156.5 Glucose Level 138 mg/dL (70-99) Calcium Level 8.8 mg/dL (8.5-10.1) Phosphorus Level 3.5 mg/dL (2.6-4.7) Magnesium Level 2.3 mg/dL (1.8-2.4) Assessment and Plan Assessmemt and Plan Problems Medical Problems: (1) Atrial fibrillation with RVR Status: Acute (2) COPD with exacerbation Status: Acute (3) Person under investigation for COVID-19 Status: Acute Comment Review of Relevant I have reviewed the following items srikanth (where applicable) has been applied. Medications: Current Medications Medications (Trade) Dose Ordered Sig/Demetra Route PRN Reason Start Time Stop Time Status Last Admin Dose Admin Pantoprazole Sodium (Protonix) 40 mg DAILYAC PO 12/07/20 07:30 12/07/20 10:08 Apixaban (Eliquis) 5 mg BID PO 12/06/20 21:00 12/07/20 10:11 Diltiazem HCl (Cardizem 24hr Cd) 120 mg DAILY PO 12/06/20 16:00 12/07/20 10:09 Aspirin (Ecotrin) 81 mg [id number] PO 12/06/20 16:00 12/07/20 10:09 Albuterol Sulfate (Ventolin Neb Soln) 2.5 mg 1X ONCE NEB 12/07/20 05:00 12/07/20 05:03 DC 12/07/20 05:00 Justifications for Admission Other Justification COPD exacerbation CLYDE CAMP MD Dec 07, 2020 14:40
[2020-12-07 14:42] VITALS: BP 175/72
[2020-12-07] MEDS: ANTI-COAG MONITOR BY PHARMACY. MC PRN (14:42)
[2020-12-07 19:00] VITALS: BP 134/56
[2020-12-07 22:35] VITALS: BP 129/57
[2020-12-08] MEDS: methylPREDNISolone SOD SUCC PF 40 MG/ML VIAL. IV SCH ×4 (00:22→18:47)
[2020-12-08 02:22] VITALS: BP 140/73
[2020-12-08] MEDS: PANTOPRAZOLE 40 MG TABLET.DR. PO SCH (05:46)
[2020-12-08 07:00] VITALS: BP 134/70
[2020-12-08] MEDS: IPRATRPIUM/ALBUTEROL 0.5/2.5MG 3 ML NEBU. NEB SCH ×4 (07:45→21:16)
[2020-12-08 08:36] LABS: BASO % 0 % (0-3); EOS % 0 % (0-3); HEMOGLOBIN 13.1 g/dL (12.0-15.5); LYMPH # 1.1 x10^3/uL (1.0-4.8); LYMPH % 11 % (24-48); MEAN CORPUSCULAR HEMOGLOBIN 33 pg (25-35); MEAN CORPUSCULAR HGB CONC 34 g/dL (31-37); MEAN CORPUSCULAR VOLUME 99 fL (79-100); MONO # 0.4 x10^3/uL (0.0-1.1); MONO % 5 % (0-9); NEUT # 8.2 x10^3/uL (1.8-7.7); NEUT % 84 % (31-73); PLATELET COUNT 388 x10^3/uL (140-400); RED BLOOD COUNT 3.94 x10^6/uL (3.50-5.40); RED CELL DISTRIBUTION WIDTH 12.7 % (11.5-14.5); WHITE BLOOD COUNT 9.7 x10^3/uL (4.0-11.0)
[2020-12-08 08:48] LABS: CALCIUM 9.2 mg/dL (8.5-10.1); CREATININE 0.6 mg/dL (0.6-1.0); MAGNESIUM 2.3 mg/dL (1.8-2.4); POTASSIUM 4.2 mmol/L (3.5-5.1)
[2020-12-08] MEDS: APIXABAN 5 MG TABLET. PO SCH ×2 (09:39→20:44)
[2020-12-08] MEDS: LOSARTAN POTASSIUM 50 MG TABLET. PO SCH (09:41)
[2020-12-08] MEDS: CITALOPRAM 20 MG TABLET. PO SCH (09:41)
[2020-12-08 11:00] VITALS: BP 149/77
--- NOTE | 2020-12-08 11:30 | NUR ---
SS following up with discharge planning. SS reviewed pt chart and discussed with pt RN. Pt is currently on requiring oxygen at three liters nasal canula. Pt has home oxygen. Pt wearing BIPAP at HS. COVID19 negative. Cardiology and Pulmonology following. Pt on IV Solu-Medrol. SS will continue to follow for discharge planning. Addendum: 12/08/20 at 1248 by KATE SHAIKH SS received request for [facility]. SS phoned and faxed referral information to [employer], ; fax [phone].
--- NOTE | 2020-12-08 12:43 | PDOC ---
JANEE HULL EQUAL OPPORTUNITY DIRECTOR 12/08/20 1243: CARDIO Progress Notes Date and Time Date of Service 12/08/20 Time of Evaluation 1240 Subjective Subjective: No Chest Pain, No Palpitations, No Dizziness, Other (not more SOA) Vitals Vitals Vital Signs Date Time Temp Pulse Resp B/P (MAP) Pulse Ox O2 Delivery O2 Flow Rate FiO2 12/08/20 11:28 97 BiPAP/CPAP 12/08/20 11:00 97.3 70 18 149/77 (101) 3.0 97.3 Weight Weight [ ] Input and Output Intake and Output Intake and Output 12/08/20 07:00 Intake Total 1465 ml Output Total 2400 ml Balance -935 ml Intake Oral 1465 ml Output Urine Total 2400 ml # Voids 6 # Bowel Movements 3 Laboratory Labs Laboratory Tests Test 12/08/20 07:50 White Blood Count 9.7 x10^3/uL (4.0-11.0) Red Blood Count 3.94 x10^6/uL (3.50-5.40) Hemoglobin 13.1 g/dL (12.0-15.5) Hematocrit 39.0 % (36.0-47.0) Mean Corpuscular Volume 99 fL (79-100) Mean Corpuscular Hemoglobin 33 pg (25-35) Mean Corpuscular Hemoglobin Concent 34 g/dL (31-37) Red Cell Distribution Width 12.7 % (11.5-14.5) Platelet Count 388 x10^3/uL (140-400) Neutrophils (%) (Auto) 84 % (31-73) Lymphocytes (%) (Auto) 11 % (24-48) Monocytes (%) (Auto) 5 % (0-9) Eosinophils (%) (Auto) 0 % (0-3) Basophils (%) (Auto) 0 % (0-3) Neutrophils # (Auto) 8.2 x10^3/uL (1.8-7.7) Lymphocytes # (Auto) 1.1 x10^3/uL (1.0-4.8) Monocytes # (Auto) 0.4 x10^3/uL (0.0-1.1) Eosinophils # (Auto) 0.0 x10^3/uL (0.0-0.7) Basophils # (Auto) 0.0 x10^3/uL (0.0-0.2) Sodium Level 138 mmol/L (136-145) Potassium Level 4.2 mmol/L (3.5-5.1) Chloride Level 99 mmol/L (98-107) Carbon Dioxide Level 30 mmol/L (21-32) Anion Gap 9 (6-14) Blood Urea Nitrogen 21 mg/dL (7-20) Creatinine 0.6 mg/dL (0.6-1.0) Estimated GFR (Cockcroft-Gault) 98.0 Glucose Level 144 mg/dL (70-99) Calcium Level 9.2 mg/dL (8.5-10.1) Magnesium Level 2.3 mg/dL (1.8-2.4) Microbiology Micro Microbiology 12/06/20 Blood Culture - Preliminary, Resulted NO GROWTH AFTER 2 DAYS Physical Exam HEENT: Neck Supple W Full Motion Chest: Symmetric LUNGS: Other (on NC, diminished ) Heart: RRR Abdomen: Soft N/T Extremities: No Edema Neurology: alert, oriented, follow commands Assessment Assessment 1. Acute on chronic respiratory failure with AE COPD and continued tobaccoism 2. PAFIB with RVR upon arrival; converted back to SR. Tele with brief paroxysms of AFIB, otherwise SR 3. Hypertension; better controlled 4. PUI; rapid negative Recommendations Continue Cardizem for rate control No BB with wheezing Consider for antiarrhythmic therapy is patient continues to have paroxysmal AFIB Eliquis for stroke prophylaxis Echo pending Ongoing pulmonary optimization Reinforced smoking cessation Outpatient event monitor; patient would like this conducted through [facility] Justicifation of Admission Dx: Justifications for Admission: Justification of Admission Dx: Yes RICHARD MORGAN MD 12/08/202038: CARDIO Progress Notes Assessment Assessment Patient seen and examined. Agree with BIODIESEL PRODUCTION TECHNICIAN's assessment and plan. Patient presented with acute respiratory failure secondary to acute COPD exacerbation and was found to be in AF with RVR. She is presently back in SR 2D echo showed normal LV systolic function. Continue Eliquis for stroke prophylaxis. Plan event monitor recording as an outpatient with primary mud jack nozzleman JANEE HULL APRN Dec 08, 2020 12:43 RICHARD MORGAN MD Dec 08, 2020 20:39
--- NOTE | 2020-12-08 12:53 | PDOC ---
[facility] PROGRESS NOTE Date of Service DOS: DATE: 12/08/20 TIME: 12:48 Chief Complaint Chief Complaint Acute hypoxic hypercapnic respiratory failure Acute COPD exacerbation Acute on chronic A. fib RVR History of COPD Tobacco misuse IV morphine as needed for dyspnea O2 supplementation to maintain O2 saturation greater than 90% BiPAP every 4 hours and as needed and nocturnal We will transition to 100 mg diltiazem p.o. daily to maintain target heart rate of less than 100 bpm IV steroids Continue telemetry Lovenox for DVT prophylaxis Protonix during steroids use GI prophylaxis ADA diet CODE STATUS DNR Discussed with RN and SW Disposition inpatient management as above DPOA: A total of 32 minutes of critical care time was spent in reviewing chart, labs, and images. Discussed with RN and SW. History of Present Illness History of Present Illness 74-year-old female with past medical history of atrial fibrillation, COPD comes in with shortness of breath for the past week aggressively worsened. Patient has also been complaining of cough that has minimal production that is clear sputum. No yellow or greenish sputum. Patient is currently on prednisone. Last night her breathing became so labored that she had to call EMS and come to the ED for further evaluation. Denies any chest pain, fevers, nausea vomiting, abdominal pain, diarrhea, hematuria or palpitations or syncope. Patient is vaccinated for COVID-19. 12/07/2020 No acute events overnight. Patient still requiring BiPAP RN. Tolerating BiPAP and breathing comfortably on machine. Continues to have some short sentences and using accessory muscles. We will continue with current IV steroid m anagement and rate control with Cardizem. Patient's chart, labs, images were reviewed and discussed with RN In addition to my E/M visit, advance care planning done with A total time of 20 minutes was spent from 11:00 to 1120 face to face in discussion regarding the patient's goals of care, CODE STATUS. Patient wishes to still remain DNR as she does not want any ventilatory support and does not want to have that kind of quality of life. I agree with her decision and and respecting her wishes. 12/08/2020 Patient continues to be short of air. Tolerating BiPAP. Still having some productive butyryl but unable to mobilize it through her airway. We will add on IV antibiotics. IV morphine as needed for dyspnea. Patient's chart, labs, images were reviewed and discussed with RN Vitals/I&O Vitals/I&O: Vital Signs Date Time Temp Pulse Resp B/P (MAP) Pulse Ox O2 Delivery O2 Flow Rate FiO2 12/08/20 11:28 97 BiPAP/CPAP 12/08/20 11:00 97.3 70 18 149/77 (101) 3.0 97.3 I & O 12/07/20 12/07/20 12/08/20 15:00 23:00 07:00 Intake Total 715 ml 500 ml 250 ml Output Total 550 ml 1650 ml 200 ml Balance 165 ml -1150 ml 50 ml Physical Exam General: Alert, Oriented X3, Cooperative, mild distress Heart: Regular rate Abdomen: Soft, No tenderness Extremities: No edema, Normal pulses Skin: No significant lesion Labs Labs: Laboratory Tests Test 12/08/20 07:50 White Blood Count 9.7 x10^3/uL (4.0-11.0) Red Blood Count 3.94 x10^6/uL (3.50-5.40) Hemoglobin 13.1 g/dL (12.0-15.5) Hematocrit 39.0 % (36.0-47.0) Mean Corpuscular Volume 99 fL (79-100) Mean Corpuscular Hemoglobin 33 pg (25-35) Mean Corpuscular Hemoglobin Concent 34 g/dL (31-37) Red Cell Distribution Width 12.7 % (11.5-14.5) Platelet Count 388 x10^3/uL (140-400) Neutrophils (%) (Auto) 84 % (31-73) Lymphocytes (%) (Auto) 11 % (24-48) Monocytes (%) (Auto) 5 % (0-9) Eosinophils (%) (Auto) 0 % (0-3) Basophils (%) (Auto) 0 % (0-3) Neutrophils # (Auto) 8.2 x10^3/uL (1.8-7.7) Lymphocytes # (Auto) 1.1 x10^3/uL (1.0-4.8) Monocytes # (Auto) 0.4 x10^3/uL (0.0-1.1) Eosinophils # (Auto) 0.0 x10^3/uL (0.0-0.7) Basophils # (Auto) 0.0 x10^3/uL (0.0-0.2) Sodium Level 138 mmol/L (136-145) Potassium Level 4.2 mmol/L (3.5-5.1) Chloride Level 99 mmol/L (98-107) Carbon Dioxide Level 30 mmol/L (21-32) Anion Gap 9 (6-14) Blood Urea Nitrogen 21 mg/dL (7-20) Creatinine 0.6 mg/dL (0.6-1.0) Estimated GFR (Cockcroft-Gault) 98.0 Glucose Level 144 mg/dL (70-99) Calcium Level 9.2 mg/dL (8.5-10.1) Magnesium Level 2.3 mg/dL (1.8-2.4) Assessment and Plan Assessmemt and Plan Problems Medical Problems: (1) Atrial fibrillation with RVR Status: Acute (2) COPD with exacerbation Status: Acute (3) Person under investigation for COVID-19 Status: Acute Comment Review of Relevant I have reviewed the following items srikanth (where applicable) has been applied. Medications: Current Medications Medications (Trade) Dose Ordered Sig/Demetra Route PRN Reason Start Time Stop Time Status Last Admin Dose Admin Info (Anti-Coagulation Monitoring By Pharmacy) 1 each PRN DAILY PRN MC PER PROTOCOL 12/07/20 14:45 12/07/20 14:42 Amlodipine Besylate (Norvasc) 10 mg DAILY PO 12/08/20 09:00 12/08/20 09:40 Citalopram Hydrobromide (CeleXA) 20 mg DAILY PO 12/08/20 09:00 12/08/20 09:41 Losartan Potassium (Cozaar) 100 mg DAILY PO 12/08/20 09:00 12/08/20 09:41 Justifications for Admission Other Justification COPD exacerbation CLYDE CAMP MD Dec 08, 2020 12:52
[2020-12-08] MEDS: CEFEPIME HCL IV Push 1 GM VIAL. IVP SCH (13:55)
[2020-12-08 15:00] VITALS: BP 136/53
--- NOTE | 2020-12-08 16:30 | CARD ---
MR#: [id number] Date of Study: 12/08/2020 Ordering Physician: JANEE HULL, Referring Physician: JANEE HULL, Tech: Martha Cat [facility] APPROVED REPORT EXAM: Two-dimensional and M-mode echocardiogram with Doppler and color Doppler. Other Information Quality : Technically LimitedHR: 78bpm Rhythm : NSR INDICATION COPD RISK FACTORS Smoking 2D DIMENSIONS RVDd0.8 (2.9-3.5cm)Left Atrium(2D)2.6 (1.6-4.0cm) IVSd0.8 (0.7-1.1cm)Aortic Root(2D)3.2 (2.0-3.7cm) LVDd3.7 (3.9-5.9cm)LVOT Diameter2.2 (1.8-2.4cm) PWd0.9 (0.7-1.1cm)LVDs2.2 (2.5-4.0cm) FS (%) 42.0 %SV43.5 ml LVEF(%)73.8 (>50%) Aortic Valve AoV Peak Lorenzo.113.8cm/sAoV VTI30.9cm AO Peak GR.5.2mmHgLVOT Peak Lorenzo.109.9cm/s AO Mean GR.3mmHgAVA (VMAX)3.51cm2 Mitral Valve MV E Cnfjljkb35.0cm/sMV DECEL [id number] MV A Sxbxepyk187.1cm/sE/A Ratio0.8 Tricuspid Valve TR P. Gjxnawxj142io/sTR Peak Gr.23mmHg LEFT VENTRICLE The left ventricle is normal size. There is normal left ventricular wall thickness. The left ventricu lar systolic function is normal. Estimated ejection fraction 60-65%. There is normal LV segmental wal l motion. Transmitral Doppler flow pattern is Grade I-abnormal relaxation pattern. RIGHT VENTRICLE The right ventricle is mildly dilated. The right ventricle is borderline hypertrophied. The right janette tricular systolic function is normal. ATRIA The left atrium size is normal. The right atrium size is normal. The interatrial septum is intact wit h no evidence for an atrial septal defect or patent foramen ovale as noted on 2-D or Doppler imaging. AORTIC VALVE The aortic valve is normal in structure and function. Doppler and Color Flow revealed no significant aortic regurgitation. There is no significant aortic valvular stenosis. MITRAL VALVE The mitral valve is normal in structure and function. There is no evidence of mitral valve prolapse. There is no mitral valve stenosis. Doppler and Color Flow revealed no mitral valve regurgitation note d. TRICUSPID VALVE The tricuspid valve is normal in structure and function. Doppler and Color Flow revealed trace tricus pid regurgitation. Estimated PAP 25 mmHg. There is no tricuspid valve stenosis. PULMONIC VALVE The pulmonary valve is normal in structure and function. Doppler and Color Flow revealed no pulmonic valvular regurgitation. GREAT VESSELS The aortic root is normal in size. The ascending aorta is normal in size. The IVC is normal in size a nd collapses >50% with inspiration. PERICARDIAL EFFUSION There is no evidence of significant pericardial effusion. Critical Notification Critical Value: No <Conclusion> The left ventricular systolic function is normal. Estimated ejection fraction 60-65%. There is normal LV segmental wall motion. Transmitral Doppler flow pattern is Grade I-abnormal relaxation pattern. Trace tricuspid regurgitation. Estimated PAP 25 mmHg. There is no evidence of significant pericardial effusion. Signed by : Zion Li, Electronically Approved : 12/08/2020 16:29:38
--- NOTE | 2020-12-08 18:50 | CONS ---
DATE OF CONSULTATION: 12/08/2020 ATTENDING PHYSICIAN: Drew Panda MD. REASON FOR CONSULTATION: The patient is seen in pulmonary consultation at the request of Dr. Panda for acute on chronic hypercapnic hypoxemic respiratory failure, initial arterial blood gas with pH of 7.27, PaCO2 of 59, pO2 of 110. HISTORY OF PRESENT ILLNESS: The patient is a 74-year-old that normally follows with rail [facility] at [facility]. She was being treated as an outpatient for acute exacerbation of COPD with some prednisone. She did not improve. She normally wears 2-3 liters of oxygen supplementation at home. She presented with progressive dyspnea and tachypnea. No fever, chills or night sweats. Cough, mostly clear. No hemoptysis. She continues to smoke. She normally experiences approximately 2 acute exacerbations of COPD. The last time she was hospitalized was back in 2018. She has been vaccinated with 2 doses of the vaccine plus the booster for COVID-19. Her last arterial blood gas revealed a pH of 7.29, PaCO2 of 63, pO2 of 73. The patient is currently on BiPAP. I took the BiPAP off, placed on 2 liters. She was doing fine. I did question her about the possibility of concomitant anxiety. She agrees that possibly some of this is anxiety related. She was recently started on Lexapro for anxiety. PAST MEDICAL HISTORY: Chronic respiratory failure, on oxygen supplementation at home at 2 liters. She has chronic AFib, COPD, tobacco dependent. PAST SURGICAL HISTORY: Status post hysterectomy. FAMILY HISTORY: Hypertension. SOCIAL HISTORY: She smokes less than 1 pack of cigarettes a day. 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 VACCINATION HISTORY: She is up to date on COVID-19 vaccine. REVIEW OF SYSTEMS: CONSTITUTIONAL: No fever or chills. EYES: No change in visual acuity. HENT: No nasal congestion or sore throat. PULMONARY: As indicated above. CARDIOVASCULAR: No chest pain or pressure. GASTROINTESTINAL: No nausea, vomiting or diarrhea. GENITOURINARY: No dysuria or frequency. MUSCULOSKELETAL: No localized muscle aches or joint pains. SKIN: No new skin rashes. NEUROLOGIC: No headaches, diplopia or blurred vision. PHYSICAL EXAMINATION: VITAL SIGNS: The patient was taken off of BiPAP. On 2 liters, her saturation was above 92%. Since admission, she has been afebrile. HEENT: Eyes: The sclerae were nonicteric. NECK: Jugular venous distention was not elevated. No lymphadenopathy. CHEST: Full expansion. LUNGS: Poor air flow with prolonged expiratory phase. CARDIOVASCULAR: Regular rate and rhythm with S1, S2, no S3. ABDOMEN: Soft. EXTREMITIES: No clubbing or cyanosis. Minimal edema. NEUROLOGIC: The patient was awake, alert, following commands. A detailed neuro exam was not performed. LABORATORY DATA: Arterial blood gas as indicated above. White count was normal. Electrolytes were noted. BUN and creatinine were noted. Chest x-ray reviewed, there is no acute cardiopulmonary process, there is hyperinflation. IMPRESSION: 1. Acute exacerbation of chronic obstructive pulmonary disease leading to acute on chronic hypercapnic hypoxemic respiratory failure. 2. Tobacco dependent. 3. Chronic bronchitis. 4. Comorbidities including hypertension and Afib. PLAN: 1. The patient was admitted, she failed outpatient treatment with prednisone. She is currently doing better. We will continue off of BiPAP throughout the day and BiPAP at bedtime. 2. Repeat arterial blood gas. 3. The patient qualifies for home Trilogy, she has COPD with chronic respiratory failure requiring noninvasive ventilation. We will proceed with setting up Trilogy at home with a target tidal volume, this will help avoid any further hypercapnia and readmissions. I do appreciate the privilege in sharing in the patient's care. DOMI ARCOS: Elsa TID: [id number]
[2020-12-08 19:00] VITALS: BP 138/55
[2020-12-08] MEDS: ZOLPIDEM 5 MG TABLET. PO PRN (20:53)
[2020-12-08 23:00] VITALS: BP 116/66
[2020-12-09] MEDS: methylPREDNISolone SOD SUCC PF 40 MG/ML VIAL. IV SCH ×5 (00:21→23:09)
[2020-12-09 03:00] VITALS: BP 131/63
[2020-12-09 04:13] LABS: BASO % 0 % (0-3); EOS % 0 % (0-3); HEMOGLOBIN 12.4 g/dL (12.0-15.5); LYMPH # 0.8 x10^3/uL (1.0-4.8); LYMPH % 9 % (24-48); MEAN CORPUSCULAR HEMOGLOBIN 33 pg (25-35); MEAN CORPUSCULAR HGB CONC 33 g/dL (31-37); MEAN CORPUSCULAR VOLUME 99 fL (79-100); MONO # 0.4 x10^3/uL (0.0-1.1); MONO % 4 % (0-9); NEUT # 8.2 x10^3/uL (1.8-7.7); NEUT % 87 % (31-73); PLATELET COUNT 371 x10^3/uL (140-400); RED BLOOD COUNT 3.73 x10^6/uL (3.50-5.40); RED CELL DISTRIBUTION WIDTH 12.6 % (11.5-14.5); WHITE BLOOD COUNT 9.4 x10^3/uL (4.0-11.0)
[2020-12-09 04:37] LABS: CALCIUM 8.8 mg/dL (8.5-10.1); CREATININE 0.4 mg/dL (0.6-1.0); GFR 156.5; MAGNESIUM 2.4 mg/dL (1.8-2.4)
[2020-12-09] MEDS: PANTOPRAZOLE 40 MG TABLET.DR. PO SCH (05:57)
[2020-12-09 07:00] VITALS: BP 132/63
[2020-12-09] MEDS: IPRATRPIUM/ALBUTEROL 0.5/2.5MG 3 ML NEBU. NEB SCH ×3 (08:00→20:30)
[2020-12-09] MEDS: APIXABAN 5 MG TABLET. PO SCH ×2 (08:28→22:05)
[2020-12-09] MEDS: CITALOPRAM 20 MG TABLET. PO SCH (08:28)
[2020-12-09] MEDS: LOSARTAN POTASSIUM 50 MG TABLET. PO SCH (08:29)
[2020-12-09 09:13] LABS: BASE EXCESS ABG 2 mmol/L (-3-3); HCO3 ABG 27 mmol/L (21-28); PCO2 ABG 40 mmHg (35-46); PO2 ABG 87 mmHg (65-108); SAT O2 ABG 96 % (92-99)
[2020-12-09 09:15] LABS: FIO2 ABG 32/3LNC
--- NOTE | 2020-12-09 09:19 | PDOC ---
PULMONARY PROGRESS NOTES DATE: 12/09/20 TIME: 09:19 Subjective Patient slept better, off of BiPAP currently, continues to be severely short of breath Continues to utilize accessory muscles to breathe Vitals Vital Signs Date Time Temp Pulse Resp B/P (MAP) Pulse Ox O2 Delivery O2 Flow Rate FiO2 12/09/20 08:49 98 Nasal Cannula 3.0 12/09/20 08:29 74 132/63 12/09/20 07:00 98.4 18 98.4 ROS: No Nausea, No Chest Pain, No Abdominal Pain, No Increase Cough General: Alert Lungs: Other (Poor airflow with expiratory wheeze expiratory phase prolonged) Cardiovascular: S1, S2 Abdomen: Soft Neuro Exam: Alert Extremities: No Edema Skin: Warm Labs Laboratory Tests Test 12/08/20 07:50 12/09/20 02:40 12/09/20 09:04 White Blood Count 9.7 x10^3/uL (4.0-11.0) 9.4 x10^3/uL (4.0-11.0) Red Blood Count 3.94 x10^6/uL (3.50-5.40) 3.73 x10^6/uL (3.50-5.40) Hemoglobin 13.1 g/dL (12.0-15.5) 12.4 g/dL (12.0-15.5) Hematocrit 39.0 % (36.0-47.0) 37.0 % (36.0-47.0) Mean Corpuscular Volume 99 fL (79-100) 99 fL (79-100) Mean Corpuscular Hemoglobin 33 pg (25-35) 33 pg (25-35) Mean Corpuscular Hemoglobin Concent 34 g/dL (31-37) 33 g/dL (31-37) Red Cell Distribution Width 12.7 % (11.5-14.5) 12.6 % (11.5-14.5) Platelet Count 388 x10^3/uL (140-400) 371 x10^3/uL (140-400) Neutrophils (%) (Auto) 84 % (31-73) 87 % (31-73) Lymphocytes (%) (Auto) 11 % (24-48) 9 % (24-48) Monocytes (%) (Auto) 5 % (0-9) 4 % (0-9) Eosinophils (%) (Auto) 0 % (0-3) 0 % (0-3) Basophils (%) (Auto) 0 % (0-3) 0 % (0-3) Neutrophils # (Auto) 8.2 x10^3/uL (1.8-7.7) 8.2 x10^3/uL (1.8-7.7) Lymphocytes # (Auto) 1.1 x10^3/uL (1.0-4.8) 0.8 x10^3/uL (1.0-4.8) Monocytes # (Auto) 0.4 x10^3/uL (0.0-1.1) 0.4 x10^3/uL (0.0-1.1) Eosinophils # (Auto) 0.0 x10^3/uL (0.0-0.7) 0.0 x10^3/uL (0.0-0.7) Basophils # (Auto) 0.0 x10^3/uL (0.0-0.2) 0.0 x10^3/uL (0.0-0.2) Sodium Level 138 mmol/L (136-145) 140 mmol/L (136-145) Potassium Level 4.2 mmol/L (3.5-5.1) 4.0 mmol/L (3.5-5.1) Chloride Level 99 mmol/L (98-107) 102 mmol/L (98-107) Carbon Dioxide Level 30 mmol/L (21-32) 33 mmol/L (21-32) Anion Gap 9 (6-14) 5 (6-14) Blood Urea Nitrogen 21 mg/dL (7-20) 25 mg/dL (7-20) Creatinine 0.6 mg/dL (0.6-1.0) 0.4 mg/dL (0.6-1.0) Estimated GFR (Cockcroft-Gault) 98.0 156.5 Glucose Level 144 mg/dL (70-99) 147 mg/dL (70-99) Calcium Level 9.2 mg/dL (8.5-10.1) 8.8 mg/dL (8.5-10.1) Magnesium Level 2.3 mg/dL (1.8-2.4) 2.4 mg/dL (1.8-2.4) O2 Saturation 96 % (92-99) Arterial Blood pH 7.44 (7.35-7.45) Arterial Blood pCO2 at Patient Temp 40 mmHg (35-46) Arterial Blood pO2 at Patient Temp 87 mmHg (65-108) Arterial Blood HCO3 27 mmol/L (21-28) Arterial Blood Base Excess 2 mmol/L (-3-3) FiO2 32/3lnc Laboratory Tests Test 12/09/20 02:40 12/09/20 09:04 White Blood Count 9.4 x10^3/uL (4.0-11.0) Red Blood Count 3.73 x10^6/uL (3.50-5.40) Hemoglobin 12.4 g/dL (12.0-15.5) Hematocrit 37.0 % (36.0-47.0) Mean Corpuscular Volume 99 fL (79-100) Mean Corpuscular Hemoglobin 33 pg (25-35) Mean Corpuscular Hemoglobin Concent 33 g/dL (31-37) Red Cell Distribution Width 12.6 % (11.5-14.5) Platelet Count 371 x10^3/uL (140-400) Neutrophils (%) (Auto) 87 % (31-73) Lymphocytes (%) (Auto) 9 % (24-48) Monocytes (%) (Auto) 4 % (0-9) Eosinophils (%) (Auto) 0 % (0-3) Basophils (%) (Auto) 0 % (0-3) Neutrophils # (Auto) 8.2 x10^3/uL (1.8-7.7) Lymphocytes # (Auto) 0.8 x10^3/uL (1.0-4.8) Monocytes # (Auto) 0.4 x10^3/uL (0.0-1.1) Eosinophils # (Auto) 0.0 x10^3/uL (0.0-0.7) Basophils # (Auto) 0.0 x10^3/uL (0.0-0.2) Sodium Level 140 mmol/L (136-145) Potassium Level 4.0 mmol/L (3.5-5.1) Chloride Level 102 mmol/L (98-107) Carbon Dioxide Level 33 mmol/L (21-32) Anion Gap 5 (6-14) Blood Urea Nitrogen 25 mg/dL (7-20) Creatinine 0.4 mg/dL (0.6-1.0) Estimated GFR (Cockcroft-Gault) 156.5 Glucose Level 147 mg/dL (70-99) Calcium Level 8.8 mg/dL (8.5-10.1) Magnesium Level 2.4 mg/dL (1.8-2.4) O2 Saturation 96 % (92-99) Arterial Blood pH 7.44 (7.35-7.45) Arterial Blood pCO2 at Patient Temp 40 mmHg (35-46) Arterial Blood pO2 at Patient Temp 87 mmHg (65-108) Arterial Blood HCO3 27 mmol/L (21-28) Arterial Blood Base Excess 2 mmol/L (-3-3) FiO2 32/3lnc Medications Active Scripts Medications Dose Route/Sig Max Daily Dose Days Date Category Trelegy Ellipta 100-62.5-25 (Fluticasone/Umeclidin/Vilanter) 1 Each Blst.w.dev 1 Each IH DAILY 12/07/20 Reported Losartan Potassium 100 Mg Tablet 100 Mg PO DAILY 12/07/20 Reported Escitalopram Oxalate 10 Mg Tablet 1 Tab PO DAILY 12/07/20 Reported Amlodipine Besylate 10 Mg Tablet 10 Mg PO DAILY 12/07/20 Reported Impression . IMPRESSION: 1. Acute exacerbation of chronic obstructive pulmonary disease leading to acute on chronic hypercapnic hypoxemic respiratory failure. 2. Tobacco dependent. 3. Chronic bronchitis. 4. Comorbidities including hypertension and Afib. Plan . Updated 12/09 Arterial blood gas this morning reviewed much improved with overnight BiPAP Patient continues to utilize accessory muscles to breathe when she is off of BiPAP Continue oxygen supplementation on 3 L Continue nebulized treatments Rx written for home noninvasive ventilation, discussed benefits with patient, I think this will prevent further hypercapnia Patient greatly benefiting from nightly noninvasive ventilation 12/08 PLAN: 1. The patient was admitted, she failed outpatient treatment with prednisone. She is currently doing better. We will continue off of BiPAP throughout the day and BiPAP at bedtime. 2. Repeat arterial blood gas. 3. The patient qualifies for home Trilogy, she has COPD with chronic respiratory failure requiring noninvasive ventilation. We will proceed with setting up Trilogy at home with a target tidal volume, this will help avoid any further hypercapnia and readmissions. I do appreciate the privilege in sharing in the patient's care. LYUBOV WARREN MD Dec 09, 2020 09:19
--- NOTE | 2020-12-09 10:41 | NUR ---
SS following up with discharge planning. SS reviewed pt chart and discussed with pt RN. Pt is currently requiring oxygen at three liters nasal canula. COVID19 negative. Pt has home oxygen. Trilogy machine ordered through [facility] and [facility], coming to hospital today between 1200 and 1300 to deliver Trilogy. Pt on IV Cefepime and IV Solu-Medrol. PT/OT ordered. Pt reported that she will not go to nursing home unit and wishes to return to home with home healthcare with no preference of company. Referral sent to [facility], ; fax [phone]. SS will continue to follow for discharge planning .
[2020-12-09 11:00] VITALS: BP 110/62
--- NOTE | 2020-12-09 11:52 | PDOC ---
JANEE HULL PHYSICAL INTEGRATION PRACTITIONER 12/09/20 1152: CARDIO Progress Notes Date and Time Date of Service 12/09/20 Time of Evaluation 1150 Subjective Subjective: No Chest Pain, No Palpitations, No Dizziness, Other (not more SOA, on NC) Vitals Vitals Vital Signs Date Time Temp Pulse Resp B/P (MAP) Pulse Ox O2 Delivery O2 Flow Rate FiO2 12/09/20 11:00 97.7 74 18 110/62 (78) 97 Nasal Cannula 3.0 97.7 Weight Weight [ ] Input and Output Intake and Output Intake and Output 12/09/20 07:00 Intake Total 920 ml Output Total 200 ml Balance 720 ml Intake Oral 920 ml Output Urine Total 200 ml # Voids 2 Laboratory Labs Laboratory Tests Test 12/09/20 02:40 12/09/20 09:04 White Blood Count 9.4 x10^3/uL (4.0-11.0) Red Blood Count 3.73 x10^6/uL (3.50-5.40) Hemoglobin 12.4 g/dL (12.0-15.5) Hematocrit 37.0 % (36.0-47.0) Mean Corpuscular Volume 99 fL (79-100) Mean Corpuscular Hemoglobin 33 pg (25-35) Mean Corpuscular Hemoglobin Concent 33 g/dL (31-37) Red Cell Distribution Width 12.6 % (11.5-14.5) Platelet Count 371 x10^3/uL (140-400) Neutrophils (%) (Auto) 87 % (31-73) Lymphocytes (%) (Auto) 9 % (24-48) Monocytes (%) (Auto) 4 % (0-9) Eosinophils (%) (Auto) 0 % (0-3) Basophils (%) (Auto) 0 % (0-3) Neutrophils # (Auto) 8.2 x10^3/uL (1.8-7.7) Lymphocytes # (Auto) 0.8 x10^3/uL (1.0-4.8) Monocytes # (Auto) 0.4 x10^3/uL (0.0-1.1) Eosinophils # (Auto) 0.0 x10^3/uL (0.0-0.7) Basophils # (Auto) 0.0 x10^3/uL (0.0-0.2) Sodium Level 140 mmol/L (136-145) Potassium Level 4.0 mmol/L (3.5-5.1) Chloride Level 102 mmol/L (98-107) Carbon Dioxide Level 33 mmol/L (21-32) Anion Gap 5 (6-14) Blood Urea Nitrogen 25 mg/dL (7-20) Creatinine 0.4 mg/dL (0.6-1.0) Estimated GFR (Cockcroft-Gault) 156.5 Glucose Level 147 mg/dL (70-99) Calcium Level 8.8 mg/dL (8.5-10.1) Magnesium Level 2.4 mg/dL (1.8-2.4) O2 Saturation 96 % (92-99) Arterial Blood pH 7.44 (7.35-7.45) Arterial Blood pCO2 at Patient Temp 40 mmHg (35-46) Arterial Blood pO2 at Patient Temp 87 mmHg (65-108) Arterial Blood HCO3 27 mmol/L (21-28) Arterial Blood Base Excess 2 mmol/L (-3-3) FiO2 32/3lnc Microbiology Micro Microbiology 12/06/20 Blood Culture - Preliminary, Resulted NO GROWTH AFTER 3 DAYS Physical Exam HEENT: Neck Supple W Full Motion Chest: Symmetric LUNGS: Other (on NC, diminished ) Heart: RRR Abdomen: Soft N/T Extremities: No Edema Neurology: alert, oriented, follow commands Assessment Assessment 1. Acute on chronic respiratory failure with AE COPD and continued tobaccoism 2. PAFIB with RVR upon arrival; converted back to SR. Presently SR. Echo with preserved LV systolic function 3. Hypertension; better controlled Recommendations Continue Cardizem for rate control No BB with wheezing Consider for antiarrhythmic therapy if further paroxysms of AFIB noted Eliquis for stroke prophylaxis Ongoing pulmonary optimization Reinforced smoking cessation Outpatient event monitor with primary lawn care professional as [facility] Justicifation of Admission Dx: Justifications for Admission: Justification of Admission Dx: Yes RICHARD MORGAN MD 12/10/20 0837: CARDIO Progress Notes Assessment Assessment Patient seen and examined 12/09/2020. Agree with INTERNET PROJECT MANAGER's assessment and plan. Acute COPD exacerbation improved since admission. PAF, back in sinus rhythm 2D echo showed normal LV systolic function. Continue Eliquis for stroke prophylaxis. Plan event monitor recording as an outpatient with primary lawn care professional JANEE HULL APRN 4, 2021 11:52 RICHARD MORGAN MD Dec 10, 2020 08:37
--- NOTE | 2020-12-09 12:54 | PDOC ---
[employer] PROGRESS NOTE Date of Service DOS: DATE: 12/09/20 TIME: 12:52 Chief Complaint Chief Complaint Acute hypoxic hypercapnic respiratory failure Acute COPD exacerbation Acute on chronic A. fib RVR History of COPD Tobacco misuse IV morphine as needed for dyspnea O2 supplementation to maintain O2 saturation greater than 90% BiPAP every 4 hours and as needed and nocturnal We will transition to 100 mg diltiazem p.o. daily to maintain target heart rate of less than 100 bpm IV steroids Continue telemetry Lovenox for DVT prophylaxis Protonix during steroids use GI prophylaxis ADA diet CODE STATUS DNR Discussed with RN and SW Disposition inpatient management as above DPOA: A total of 36 minutes of critical care time was spent in reviewing chart, labs, and images. Discussed with RN and SW. History of Present Illness History of Present Illness 74-year-old female with past medical history of atrial fibrillation, COPD comes in with shortness of breath for the past week aggressively worsened. Patient has also been complaining of cough that has minimal production that is clear sputum. No yellow or greenish sputum. Patient is currently on prednisone. Last night her breathing became so labored that she had to call EMS and come to the ED for further evaluation. Denies any chest pain, fevers, nausea vomiting, abdominal pain, diarrhea, hematuria or palpitations or syncope. Patient is vaccinated for COVID-19. 12/07/2020 No acute events overnight. Patient still requiring BiPAP RN. Tolerating BiPAP and breathing comfortably on machine. Continues to have some short sentences and using accessory muscles. We will continue with current IV steroid m anagement and rate control with Cardizem. Patient's chart, labs, images were reviewed and discussed with RN In addition to my E/M visit, advance care planning done with A total time of 20 minutes was spent from 11:00 to 1120 face to face in discussion regarding the patient's goals of care, CODE STATUS. Patient wishes to still remain DNR as she does not want any ventilatory support and does not want to have that kind of quality of life. I agree with her decision and and respecting her wishes. 12/08/2020 Patient continues to be short of air. Tolerating BiPAP. Still having some productive butyryl but unable to mobilize it through her airway. We will add on IV antibiotics. IV morphine as needed for dyspnea. Patient's chart, labs, images were reviewed and discussed with RN 12/09/2020 No acute events overnight. Patient seen and examined bedside. Patient tolerating BiPAP at night and nasal cannula at 3 L during the day. Not more short of air than usual actually feels better today. ABG drawn this morning 7.4/. Pulmonology working on trying to get her trilogy machine to go home with. Pending PT OT evaluation. Patient's chart, labs, images were reviewed and discussed with RN Vitals/I&O Vitals/I&O: Vital Signs Date Time Temp Pulse Resp B/P (MAP) Pulse Ox O2 Delivery O2 Flow Rate FiO2 12/09/20 11:00 97.7 74 18 110/62 (78) 97 Nasal Cannula 3.0 97.7 I & O 12/08/20 12/08/20 12/09/20 15:00 23:00 07:00 Intake Total 560 ml 200 ml 160 ml Output Total 200 ml Balance 560 ml 200 ml -40 ml Physical Exam General: Alert, Oriented X3, Cooperative, mild distress Heart: Regular rate Abdomen: Soft, No tenderness Extremities: No edema, Normal pulses Skin: No significant lesion Labs Labs: Laboratory Tests Test 12/09/20 02:40 12/09/20 09:04 White Blood Count 9.4 x10^3/uL (4.0-11.0) Red Blood Count 3.73 x10^6/uL (3.50-5.40) Hemoglobin 12.4 g/dL (12.0-15.5) Hematocrit 37.0 % (36.0-47.0) Mean Corpuscular Volume 99 fL (79-100) Mean Corpuscular Hemoglobin 33 pg (25-35) Mean Corpuscular Hemoglobin Concent 33 g/dL (31-37) Red Cell Distribution Width 12.6 % (11.5-14.5) Platelet Count 371 x10^3/uL (140-400) Neutrophils (%) (Auto) 87 % (31-73) Lymphocytes (%) (Auto) 9 % (24-48) Monocytes (%) (Auto) 4 % (0-9) Eosinophils (%) (Auto) 0 % (0-3) Basophils (%) (Auto) 0 % (0-3) Neutrophils # (Auto) 8.2 x10^3/uL (1.8-7.7) Lymphocytes # (Auto) 0.8 x10^3/uL (1.0-4.8) Monocytes # (Auto) 0.4 x10^3/uL (0.0-1.1) Eosinophils # (Auto) 0.0 x10^3/uL (0.0-0.7) Basophils # (Auto) 0.0 x10^3/uL (0.0-0.2) Sodium Level 140 mmol/L (136-145) Potassium Level 4.0 mmol/L (3.5-5.1) Chloride Level 102 mmol/L (98-107) Carbon Dioxide Level 33 mmol/L (21-32) Anion Gap 5 (6-14) Blood Urea Nitrogen 25 mg/dL (7-20) Creatinine 0.4 mg/dL (0.6-1.0) Estimated GFR (Cockcroft-Gault) 156.5 Glucose Level 147 mg/dL (70-99) Calcium Level 8.8 mg/dL (8.5-10.1) Magnesium Level 2.4 mg/dL (1.8-2.4) O2 Saturation 96 % (92-99) Arterial Blood pH 7.44 (7.35-7.45) Arterial Blood pCO2 at Patient Temp 40 mmHg (35-46) Arterial Blood pO2 at Patient Temp 87 mmHg (65-108) Arterial Blood HCO3 27 mmol/L (21-28) Arterial Blood Base Excess 2 mmol/L (-3-3) FiO2 32/3lnc Assessment and Plan Assessmemt and Plan Problems Medical Problems: (1) Atrial fibrillation with RVR Status: Acute (2) COPD with exacerbation Status: Acute (3) Person under investigation for COVID-19 Status: Acute Comment Review of Relevant I have reviewed the following items srikanth (where applicable) has been applied. Medications: Current Medications Medications (Trade) Dose Ordered Sig/Demetra Route PRN Reason Start Time Stop Time Status Last Admin Dose Admin Cefepime HCl (Maxipime) 1 gm Q24H IVP 12/08/20 13:00 12/08/20 13:55 Guaifenesin (Mucinex) 600 mg BID PO 12/08/20 21:00 12/09/20 08:28 Justifications for Admission Other Justification COPD exacerbation CLYDE CAMP MD Dec 09, 2020 12:54
[2020-12-09] MEDS: CEFEPIME HCL IV Push 1 GM VIAL. IVP SCH (13:17)
[2020-12-09 15:00] VITALS: BP 128/50
[2020-12-09 19:32] VITALS: BP 125/56
[2020-12-09] MEDS: LACTOBACILLUS RHAMNOSUS GG 1 CAPSULE. PO SCH (22:05)
[2020-12-09] MEDS: ZOLPIDEM 5 MG TABLET. PO PRN (22:05)
[2020-12-09 22:21] VITALS: BP 133/77
[2020-12-10 02:52] VITALS: BP 158/74
[2020-12-10] MEDS: methylPREDNISolone SOD SUCC PF 40 MG/ML VIAL. IV SCH ×2 (05:56→12:27)
[2020-12-10] MEDS: PANTOPRAZOLE 40 MG TABLET.DR. PO SCH ×2 (05:56→08:32)
[2020-12-10 07:05] VITALS: BP 132/59
[2020-12-10] MEDS: IPRATRPIUM/ALBUTEROL 0.5/2.5MG 3 ML NEBU. NEB SCH ×2 (07:50→11:48)
[2020-12-10] MEDS: APIXABAN 5 MG TABLET. PO SCH (08:31)
[2020-12-10] MEDS: CITALOPRAM 20 MG TABLET. PO SCH (08:31)
[2020-12-10] MEDS: LOSARTAN POTASSIUM 50 MG TABLET. PO SCH (08:31)
[2020-12-10] MEDS: LACTOBACILLUS RHAMNOSUS GG 1 CAPSULE. PO SCH (08:32)
--- NOTE | 2020-12-10 08:32 | PDOC ---
PULMONARY PROGRESS NOTES DATE: 12/10/20 TIME: 08:32 Subjective BiPAP, feels better, continues to be short of breath at times, agrees that some of it is anxiety Vitals Vital Signs Date Time Temp Pulse Resp B/P (MAP) Pulse Ox O2 Delivery O2 Flow Rate FiO2 12/10/20 07:52 99 Nasal Cannula 3.0 12/10/20 07:05 98.0 79 22 132/59 (83) 98.0 ROS: No Nausea, No Chest Pain, No Abdominal Pain, No Increase Cough General: Alert Lungs: Other (Poor airflow with expiratory wheeze expiratory phase prolonged) Cardiovascular: S1, S2 Abdomen: Soft Neuro Exam: Alert Extremities: No Edema Skin: Warm Labs Laboratory Tests Test 12/09/20 02:40 12/09/20 09:04 White Blood Count 9.4 x10^3/uL (4.0-11.0) Red Blood Count 3.73 x10^6/uL (3.50-5.40) Hemoglobin 12.4 g/dL (12.0-15.5) Hematocrit 37.0 % (36.0-47.0) Mean Corpuscular Volume 99 fL (79-100) Mean Corpuscular Hemoglobin 33 pg (25-35) Mean Corpuscular Hemoglobin Concent 33 g/dL (31-37) Red Cell Distribution Width 12.6 % (11.5-14.5) Platelet Count 371 x10^3/uL (140-400) Neutrophils (%) (Auto) 87 % (31-73) Lymphocytes (%) (Auto) 9 % (24-48) Monocytes (%) (Auto) 4 % (0-9) Eosinophils (%) (Auto) 0 % (0-3) Basophils (%) (Auto) 0 % (0-3) Neutrophils # (Auto) 8.2 x10^3/uL (1.8-7.7) Lymphocytes # (Auto) 0.8 x10^3/uL (1.0-4.8) Monocytes # (Auto) 0.4 x10^3/uL (0.0-1.1) Eosinophils # (Auto) 0.0 x10^3/uL (0.0-0.7) Basophils # (Auto) 0.0 x10^3/uL (0.0-0.2) Sodium Level 140 mmol/L (136-145) Potassium Level 4.0 mmol/L (3.5-5.1) Chloride Level 102 mmol/L (98-107) Carbon Dioxide Level 33 mmol/L (21-32) Anion Gap 5 (6-14) Blood Urea Nitrogen 25 mg/dL (7-20) Creatinine 0.4 mg/dL (0.6-1.0) Estimated GFR (Cockcroft-Gault) 156.5 Glucose Level 147 mg/dL (70-99) Calcium Level 8.8 mg/dL (8.5-10.1) Magnesium Level 2.4 mg/dL (1.8-2.4) O2 Saturation 96 % (92-99) Arterial Blood pH 7.44 (7.35-7.45) Arterial Blood pCO2 at Patient Temp 40 mmHg (35-46) Arterial Blood pO2 at Patient Temp 87 mmHg (65-108) Arterial Blood HCO3 27 mmol/L (21-28) Arterial Blood Base Excess 2 mmol/L (-3-3) FiO2 32/3lnc Laboratory Tests Test 12/09/20 09:04 O2 Saturation 96 % (92-99) Arterial Blood pH 7.44 (7.35-7.45) Arterial Blood pCO2 at Patient Temp 40 mmHg (35-46) Arterial Blood pO2 at Patient Temp 87 mmHg (65-108) Arterial Blood HCO3 27 mmol/L (21-28) Arterial Blood Base Excess 2 mmol/L (-3-3) FiO2 32/3lnc Medications Active Scripts Medications Dose Route/Sig Max Daily Dose Days Date Category Trelegy Ellipta 100-62.5-25 (Fluticasone/Umeclidin/Vilanter) 1 Each Blst.w.dev 1 Each IH DAILY 12/07/20 Reported Losartan Potassium 100 Mg Tablet 100 Mg PO DAILY 12/07/20 Reported Escitalopram Oxalate 10 Mg Tablet 1 Tab PO DAILY 12/07/20 Reported Amlodipine Besylate 10 Mg Tablet 10 Mg PO DAILY 12/07/20 Reported Impression . IMPRESSION: 1. Acute exacerbation of chronic obstructive pulmonary disease leading to acute on chronic hypercapnic hypoxemic respiratory failure. 2. Tobacco dependent. 3. Chronic bronchitis. 4. Comorbidities including hypertension and Afib. 5. Nonspecific anxiety Plan . Updated 12/[address] Panda, and case management okay to discharge Follow-up with director of home economics at [facility] Copy of my consult and progress note given to patient Patient currently on Lexapro for anxiety Taper prednisone, discharged home on antibiotics Continue trilogy nightly Updated 12/09 Arterial blood gas this morning reviewed much improved with overnight BiPAP Patient continues to utilize accessory muscles to breathe when she is off of BiPAP Continue oxygen supplementation on 3 L Continue nebulized treatments Rx written for home noninvasive ventilation, discussed benefits with patient, I think this will prevent further hypercapnia Patient greatly benefiting from nightly noninvasive ventilation LYUBOV WARREN MD Dec 10, 2020 08:32
[2020-12-10] MEDS: ANTI-COAG MONITOR BY PHARMACY. MC PRN (08:36)
--- NOTE | 2020-12-10 10:16 | PDOC ---
JIMMY LEUNG CAFETERIA ASSOCIATE 12/10/20 1016: CARDIO Progress Notes Date and Time Date of Service 12/10/2020 Time of Evaluation 1000 Subjective Subjective: No Chest Pain, No shortness of breath, No Palpitations Vitals Vitals Vital Signs Date Time Temp Pulse Resp B/P (MAP) Pulse Ox O2 Delivery O2 Flow Rate FiO2 12/10/20 08:32 79 132/59 12/10/20 08:00 Nasal Cannula 3.0 12/10/20 07:52 99 12/10/20 07:05 98.0 22 98.0 Weight Weight [ ] Input and Output Intake and Output Intake and Output 12/10/20 07:00 Intake Total 1210 ml Output Total 1000 ml Balance 210 ml Intake Oral 1210 ml Output Urine Total 1000 ml # Bowel Movements 3 Microbiology Micro Microbiology 12/06/20 Blood Culture - Preliminary, Resulted NO GROWTH AFTER 4 DAYS Physical Exam HEENT: Neck Supple W Full Motion Chest: Symmetric LUNGS: Other (diminished) Heart: RRR (SR) Abdomen: Soft N/T Extremities: No Edema Neurology: alert, oriented, follow commands Assessment Assessment 1. Acute on chronic respiratory failure with AE COPD and continued tobaccoism 2. PAFIB with RVR upon arrival; converted back to SR. Presently SR. Echo with preserved LV systolic function 3. Hypertension; better controlled Recommendations Continue Cardizem for rate control No BB with wheezing Consider for antiarrhythmic therapy if further paroxysms of AFIB noted Eliquis for stroke prophylaxis Ongoing pulmonary optimization Reinforced smoking cessation Outpatient event monitor with primary manager sourcing as Replaced By [facility] Justicifation of Admission Dx: Justifications for Admission: Justification of Admission Dx: Yes RICHARD MORGAN MD 12/10/20 1552: CARDIO Progress Notes Assessment Assessment Patient seen and examined. Agree with COMMERCIAL REAL ESTATE ASSISTANT's assessment and plan. Acute COPD exacerbation improved since admission. PAF, back in sinus rhythm 2D echo showed normal LV systolic function. Continue Eliquis for stroke prophylaxis. Plan event monitor recording as an outpatient with primary manager sourcing JIMMY LEUNG APRN Dec 10, 2020 10:16 RICHARD MORGAN MD Dec 10, 2020 15:52
[2020-12-10 10:50] VITALS: BP 124/57
--- NOTE | 2020-12-10 10:53 | NUR ---
SS following up with discharge planning. SS reviewed pt chart and discussed with pt RN. Pt is currently requiring oxygen at three liters nasal canula. Pt has home oxygen. Pt has new Trilogy machine through [employer], ; fax [phone]. Pt on IV Cefepime and IV Solu-Medrol. COVID19 negative. PT/OT ordered. OT recommended home with home healthcare. Pt accepted on services with [facility], ; fax [phone]. SS will continue to follow for discharge planning. Addendum: 12/10/20 at 1231 by KATE SHAIKH Discharge orders received for home with home healthcare. Discharge orders sent to [facility].
[2020-12-10] MEDS ORDERED: APIX5TAB PO (12:23)
[2020-12-10] MEDS ORDERED: PRED20TA PO (12:23)
[2020-12-10] MEDS ORDERED: AMOX1TAB58 PO (12:23)
[2020-12-10] MEDS ORDERED: DILT180C29 PO (12:23)
--- NOTE | 2020-12-10 12:24 | DISCH ---
DISCHARGE INSTRUCTIONS Condition on Discharge Condition on Discharge: Guarded Activity After Discharge Activity Instructions for Disc: Activity as tolerated Lifting Instructions after Dis: Do not lift >10 pounds Exercise Instruction after Dis: Walk 15 min, 3 x per day Driving Instructions after Dis: Do not drive today Diet after Discharge Diet after Discharge: Cardiac Follow-Up Follow up with: PCP within 2 weeks of discharge Follow Up With: Pulmonology and cardiology as needed or as scheduled CLYDE CAMP MD Dec 10, 2020 12:24
--- NOTE | 2020-12-10 12:25 | SNU/HH DC ---
DISCHARGE WITH HOME HEALTH DISCHARGE INFORMATION: Discharge Date: Dec 10, 2020 Final Diagnosis: Problems Medical Problems: (1) Atrial fibrillation with RVR Status: Acute (2) COPD with exacerbation Status: Acute (3) Person under investigation for COVID-19 Status: Acute Condition on Discharge: Guarded CODE STATUS: Code Status: DNR/DNI HOME HEALTH: Face to Face: I certify this patient is under my care and that I, or a nurse practitioner or physician's information services assistant working with me, had a face to face encounter that meets the physician face to face encounter requirements with this patient on []. Medical Complications: COPD, Falls, HTN, Pneumonia Jail For: Assess & Educate Safety, Assess/Skilled Observatio, Medication Management RN For Eval/Treatment: Yes Physical Therapy For: Evalulation/Treatment Occupational Therapy For: Evaluation/Treatment Home Health Aide For: Self-care Pt Meets Homebound Status: Extreme weakness w/ amb., Frequent falls w/ injury, Limited distance walking, Unable to negotiate home POST DISCHARGE ORDERS: Activity Instructions for Disc: Activity as tolerated FOLLOW-UP: Follow up with: PCP within 2 weeks of discharge Follow Up With: Pulmonology and cardiology as needed or as scheduled TREATMENT/EQUIPMENT ORDERS: Discharge Respiratory Equipmen: Oxygen, CPAP, BiPAP CERTIFICATION STATEMENT: Certification Statement: Certification Statement: Based on the above finding, I certify that this patient is confined to the home and needs intermittent halfway care, physical therapy and/or speech therapy, or continues to need occupational therapy.~ This patient is under my care, and I have initiated the establishment of the plan of care.~ This patient will be followed by myself or a community physician who will periodically review the plan of care. Home Meds Active Scripts Amoxicillin/Potassium Clav (AUGMENTIN 500-125 TABLET) 1 Each Tablet, 1 TAB PO B ID for pneumonia for 3 Days, #6 TAB 0 Refills Prov:CLYDE CAMP MD 12/10/20 Prednisone (PREDNISONE) 20 Mg Tablet, 1 TAB PO DAILY for copd flare for 5 Days, #5 TAB Prov:CLYDE CAPM MD 12/10/20 Diltiazem Hcl (DILTIAZEM 24HR CD) 180 Mg Cap.er.24h, 180 MG PO DAILY for irregular heart rate for 30 Days, #30 CAP.SR 2 Refills Prov:CLYDE CAMP MD 12/10/20 Apixaban (ELIQUIS) 5 Mg Tablet, 5 MG PO BID for stroke prophylaxis for 30 Days, #60 TAB 2 Refills Prov:CLYDE CAMP MD 12/10/20 Reported Medications Fluticasone/Umeclidin/Vilanter (Trelegy Ellipta 100-62.5-25) 1 Each Blst.w.dev, 1 EACH IH DAILY for BREATHING 12/07/20 Losartan Potassium (LOSARTAN POTASSIUM) 100 Mg Tablet, 100 MG PO DAILY for HYPERTENSION, TAB 12/07/20 Escitalopram Oxalate (ESCITALOPRAM OXALATE) 10 Mg Tablet, 1 TAB PO DAILY for ANTIDEPRESSANT, #30 TAB 3 Refills 12/07/20 Discontinued Reported Medications Amlodipine Besylate (AMLODIPINE BESYLATE) 10 Mg Tablet, 10 MG PO DAILY for HEART , TAB 12/07/20 CLYDE CAMP MD Dec 10, 2020 12:25
[2020-12-10] MEDS: CEFEPIME HCL IV Push 1 GM VIAL. IVP SCH (12:34)
--- NOTE | 2020-12-10 14:12 | NUR ---
Discharge Note: [facility] Discharge instructions and discharge home medications reviewed with Patient and a copy given. All questions have been answered and understanding verbalized. The following instructions and handouts were given: Follow up with rehanger at [facility] for possible event monitor and manager supply at [facility]. This RN called [facility] in [place] for new perscriptions to be filled. Patient called [facility] for her cpap/bipap machine and they will meet them at their home within two hours. [facility] visited with patient 12/09/20 and will send a nurse 12/11/20. Education pertaining to new medications, and Drs. orders have been discussed and given to patient and her spouse. Discontinued lines and drains: 20g in right AC removed with tip intact. Patient discharged to home with [facility]. Patient's spouse is driving patient from [facility] facility.
--- NOTE | 2020-12-14 11:54 | PDOC3 ---
[facility]-Discharge Summary Date of Admission: Date of Admission: Dec 06, 2020 Date of Discharge: Date of Discharge: Dec 10, 2020 Discharge Diagnosis: Discharge Diagnosis: Acute hypoxic hypercapnic respiratory failure Acute COPD exacerbation Acute on chronic A. 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 Patient has also been complaining of cough that has minimal production that is clear sputum. No yellow or greenish sputum. Patient is currently on prednisone. Last night her breathing became so labored that she had to call EMS and come to the ED for further evaluation. Denies any chest pain, fevers, nausea vomiting, abdominal pain, diarrhea, hematuria or palpitations or syncope. Patient is vaccinated for COVID-19. 12/07/2020 No acute events overnight. Patient still requiring BiPAP RN. Tolerating BiPAP and breathing comfortably on machine. Continues to have some short sentences and using accessory muscles. We will continue with current IV steroid man agement and rate control with Cardizem. Patient's chart, labs, images were reviewed and discussed with RN In addition to my E/M visit, advance care planning done with A total time of 20 minutes was spent from 11:00 to 1120 face to face in discussion regarding the patient's goals of care, CODE STATUS. Patient wishes to still remain DNR as she does not want any ventilatory support and does not want to have that kind of quality of life. I agree with her decision and and respecting her wishes. 12/08/2020 Patient continues to be short of air. Tolerating BiPAP. Still having some productive butyryl but unable to mobilize it through her airway. We will add on IV antibiotics. IV morphine as needed for dyspnea. Patient's chart, labs, images were reviewed and discussed with RN 12/09/2020 No acute events overnight. Patient seen and examined bedside. Patient tolerating BiPAP at night and nasal cannula at 3 L during the day. Not more short of air than usual actually feels better today. ABG drawn this morning 7 .4//87/27. Pulmonology working on trying to get her trilogy machine to go home with. Pending PT OT evaluation. Patient's chart, labs, images were reviewed and discussed with RN By day of discharge, pt was clinically stable and ready for discharge. Rest of hospital course was uneventful Disposition: Disposition/Orders: D/C to Home w/ HH Activity: Activity: Resume previous activity Diet: Diet: Cardiac Medications: Home Meds Active Scripts Amoxicillin/Potassium Clav (AUGMENTIN 500-125 TABLET) 1 Each Tablet, 1 TAB PO BID for pneumonia for 3 Days, #6 TAB 0 Refills Prov:CLYDE CAMP MD 12/10/20 Prednisone (PREDNISONE) 20 Mg Tablet, 1 TAB PO DAILY for copd flare for 5 Days, #5 TAB Prov:CLYDE CAMP MD 12/10/20 Diltiazem Hcl (DILTIAZEM 24HR CD) 180 Mg Cap.er.24h, 180 MG PO DAILY for irregular heart rate for 30 Days, #30 CAP.SR 2 Refills Prov:CLYDE CAMP MD 12/10/20 Apixaban (ELIQUIS) 5 Mg Tablet, 5 MG PO BID for stroke prophylaxis for 30 Days, #60 TAB 2 Refills Prov:CLYDE CAMP MD 12/10/20 Reported Medications Fluticasone/Umeclidin/Vilanter (Trelegy Ellipta 100-62.5-25) 1 Each Blst.w.dev, 1 EACH IH DAILY for BREATHING 12/07/20 Losartan Potassium (LOSARTAN POTASSIUM) 100 Mg Tablet, 100 MG PO DAILY for HYPERTENSION, TAB 12/07/20 Escitalopram Oxalate (ESCITALOPRAM OXALATE) 10 Mg Tablet, 1 TAB PO DAILY for ANTIDEPRESSANT, #30 TAB 3 Refills 12/07/20 Discontinued Reported Medications Amlodipine Besylate (AMLODIPINE BESYLATE) 10 Mg Tablet, 10 MG PO DAILY for HEART , TAB 12/07/20 Scheduled Amoxicillin/Potassium Clav (Augmentin 500-125 Tablet), 1 TAB PO BID Apixaban (Eliquis), 5 MG PO BID Diltiazem Hcl (Diltiazem 24HR Cd), 180 MG PO DAILY Escitalopram Oxalate (Escitalopram Oxalate), 1 TAB PO DAILY, (Reported) Fluticasone/Umeclidin/Vilanter (Trelegy Ellipta 100-62.5-25), 1 EACH IH DAILY, (Reported) Losartan Potassium (Losartan Potassium), 100 MG PO DAILY, (Reported) Prednisone (Prednisone), 1 TAB PO DAILY Discontinued Medications Amlodipine Besylate (Amlodipine Besylate), 10 MG PO DAILY, (Reported) Total Time: Total Time: Total time spent was 33 minutes in preparing scripts, discharge planning with SW and RN, and preparing this discharge summary. Patient seen and examined on day of discharge. Justicifation of Admission Dx: Justifications for Admission: Justification of Admission Dx: Yes CLYDE CAMP MD Dec 14, 2020 11:54
== END 2020-12-10 14:17 | disposition home or self-care (01) | DRG 760 ==
LOC: ER 23:55 → ED HOLD 12-06 01:20 → 6 SOUTH 12-06 15:58
PROVIDERS: ADMIT Internal Medicine; ATTEND Internal Medicine
PROC: 5A09357 Assistance with Respiratory Ventilation, Less than 24 Consecutive Hours, Continuous Positive Airway Pressure (ICD-10-PCS; principal; 2020-12-06)
PROC: 5A09357 Assistance with Respiratory Ventilation, Less than 24 Consecutive Hours, Continuous Positive Airway Pressure (ICD-10-PCS; 2020-12-07)
PROC: 5A09357 Assistance with Respiratory Ventilation, Less than 24 Consecutive Hours, Continuous Positive Airway Pressure (ICD-10-PCS; 2020-12-08)
PROC: 5A09357 Assistance with Respiratory Ventilation, Less than 24 Consecutive Hours, Continuous Positive Airway Pressure (ICD-10-PCS; 2020-12-09)
PROC: 5A09357 Assistance with Respiratory Ventilation, Less than 24 Consecutive Hours, Continuous Positive Airway Pressure (ICD-10-PCS; 2020-12-10)
DX: Z90.710 Acquired absence of both cervix and uterus (principal); J96.22 Acute and chronic respiratory failure with hypercapnia; I48.20 Chronic atrial fibrillation, unspecified; J44.1 Chronic obstructive pulmonary disease with (acute) exacerbation; E89.0 Postprocedural hypothyroidism; F17.210 Nicotine dependence, cigarettes, uncomplicated; F41.9 Anxiety disorder, unspecified; I10 Essential (primary) hypertension; I48.0 Paroxysmal atrial fibrillation; Z20.822 Contact with and (suspected) exposure to COVID-19; Z66 Do not resuscitate; Z82.49 Family history of ischemic heart disease and other diseases of the circulatory system; M19.90 Unspecified osteoarthritis, unspecified site; Z71.6 Tobacco abuse counseling
CPT/HCPCS: 36415; 36600; 71045; 80048; 80053; 81001; 82805; 83605; 83735; 83880; 84100; 84443; 84484; 85025; 87040; 87426; 87804; 93005; 93306; 94640; 94660; 94760; 96374; 96375; J0692; J1650; J2060; J2405; J2920; J2930; J3490; J7030; U0003; U0005; 97530-GO; 97535-GO; 99285-25; G0378; J7613